=== PATIENT | male | born 1930 | race Caucasian/White ===

== ENCOUNTER 2019-01-21 13:40 | Inpatient (IN) ==
[2019-01-21] MEDS ORDERED: 0.9 % SODIUM CHLORIDE 1,000 ML IV ONE ×2 (13:46→14:53)
--- NOTE | 2019-01-21 13:57 | Emergency Department Note ---
Weakness HPI - General Chief complaint: Weakness Stated complaint: weakness Time Seen by Provider: 01/21/19 13:51 Source: patient, EMS Mode of arrival: EMS Limitations: no limitations - History of Present Illness HPI Narrative: Patient was seen in urgent care 4 days ago and diagnosed with influenza a was given Tamiflu. He was advised to return to the ED if he had increase symptoms patient states his been having increased weakness since then. There is been no nausea vomiting but patient appears to be dehydrated with his tongue being extremely dry. Patient does have a history of A. fib heart rate is in the 140s when he arrives but after given fluids is coming down. He denies any chest pain there is no shortness of breath.Is running a low-grade temperature of 99.6 the pulse rate is 146 respiratory rate 22 blood pressure 117/73 pulse ox is 91% on room air. Denies nausea vomiting no abdominal pain. Denies urgency frequency or dysuria - Related Data Home Medications Medication Instructions Recorded Confirmed Centrum Complete Multivit Tab 1 tab PO QDAY 12/26/15 01/21/19 Previous Rx's Medication Instructions Recorded oseltamivir 75 mg capsule 75 mg PO BID 5 Days #10 cap 01/18/19 apixaban 5 mg tablet 5 mg PO BID #1 tab 01/19/19 benazepril 20 mg tablet 20 mg PO QDAY #1 tab 01/19/19 bisoprolol fumarate 5 mg tablet 5 mg PO QDAY #1 tab 01/19/19 carbidopa 25 mg-levodopa 100 mg 1 tab PO TID #1 tab 01/19/19 tablet metformin 500 mg tablet 500 mg PO QDAY #1 tab 01/19/19 pioglitazone 45 mg tablet 45 mg PO QDAY #1 tab 01/19/19 rasagiline 1 mg tablet 1 mg PO QDAY #1 tab 01/19/19 Allergies Allergy/AdvReac Type Severity Reaction Status Date / Time No Known Drug Allergies Allergy Verified 01/21/19 13:44 Review of Systems Limitations: ROS unobtainable due to patients medical condition Constitutional: Reports: fever, chills Eyes: Denies: eye pain ENT ED: Reports: throat pain. Denies: ear pain, dental pain Cardiovascular: Denies: chest pain, palpitations, dyspnea on exertion Respiratory: Denies: as per HPI, shortness of breath, cough Gastrointestinal: Reports: abdominal pain. Denies: nausea, vomiting Genitourinary: Denies: dysuria, frequency, urgency Musculoskeletal: Denies: back pain, joint swelling Integumentary: Reports: pruritus. Denies: rash, lesions Neurological: Reports: as per HPI, weakness. Denies: headache, numbness, paresthesias, confusion Endocrine: Reports: fatigue Hematological/Lymphatic: Denies: easy bleeding Allergic/Immunologic: Denies: facial swelling Past Medical History - Social History smoking status: Never smoker Physical Exam Limitations: no limitations General appearance: alert Eye: Present: normal appearance, PERRL ENT: normal exam, normal oropharynx, mucous membranes dry, TM's normal bilaterally Neck: Present: normal inspection, full ROM, trachea midline. Absent: tenderness, meningismus Chest: Present: normal inspection, symmetric chest wall rise. Absent: tenderness Respiratory: Present: normal lung sounds bilaterally. Absent: respiratory d istress, rales/crackles, wheezes Cardiovascular: Present: regular rate, normal rhythm, normal heart sounds. Absent: bradycardia, tachycardia, irregular rhythm Abdominal: Present: soft, normal bowel sounds. Absent: distention, tenderness, guarding, rebound, rigidity Extremities: Present: normal inspection, full ROM. Absent: tenderness Back: Present: normal inspection, full ROM. Absent: tenderness Neurological: Present: alert, oriented X3, CN II-XII intact, reflexes normal. Absent: motor sensory deficit Psychiatric: Present: normal affect Skin: Present: warm, cool Course Vital Signs Temperature 99.6 F H 01/21/19 13:41 Pulse Rate 146 H 01/21/19 13:41 Respiratory Rate 22 01/21/19 13:41 Blood Pressure 117/73 01/21/19 13:41 Pulse Oximetry (%) 91 01/21/19 13:41 Temperature 98.2 F 01/22/19 04:01 Pulse Rate 101 H 01/22/19 07:23 Respiratory Rate 23 H 01/22/19 07:23 Blood Pressure 99/62 01/22/19 06:01 Pulse Oximetry (%) 94 01/22/19 06:07 Weakness - [facility] Narrative Medical decision making narrative: Patient has influenza on chest x-ray reveals bilateral infiltrates. Cultures have been drawn awaiting laboratory test results. Patient started on Rocephin and Zithromax. EKG shows A. fib with RVR this was sent over to the cherry cutter at [facility] to review, Dr. Lopez felt that this was just simply atrial fibrillation with RVR and treated with DILTIAZEM. Given IV fluids as he is day dehydrated - Lab Data Result diagrams: 01/22/19 03:56 01/22/19 03:56 Lab Results 01/21/19 01/21/19 01/21/19 Range/Units 14:05 14:05 14:05 WBC 16.9 H (4.5-11.0) K/mcL RBC 4.50 (4.50-5.90) M/mcL Hgb 14.4 (13.5-16.5) g/dL Hct 43.8 (41.0-55.0) % MCV 97.3 (80.0-100.0) fL MCH 31.9 (26.0-34.0) pg MCHC 32.8 (31.0-36.0) g/dL RDW 13.7 (11.5-14.5) % Plt Count 125 L (140-440) K/mcL MPV 8.9 (7.4-10.4) fL Gran % 90.7 H (38.0-78.0) % Lymph % (Auto) 6.2 L (15.5-49.0) % Boyle % (Auto) 3.0 (1.0-12.0) % Eos % (Auto) 0 (0.0-7.0) % Baso % (Auto) 0.1 (0.0-2.0) % Gran # 15.3 H (1.8-8.0) K/mcL Lymph # (Auto) 1.0 L (1.5-4.8) K/mcL Boyle # (Auto) 0.5 (0.1-0.9) K/mcL Eos # (Auto) 0 (0.0-0.7) K/mcL Baso # (Auto) 0 (0.0-0.3) K/mcL VBG Lactic Acid 1.7 (0.5-2.0) mmol/L Sodium 134 (133-145) mmol/L Potassium 4.0 (3.3-5.1) mmol/L Chloride 94 L (96-108) mmol/L Carbon Dioxide 29 (22-30) mmol/L Anion Gap 11.0 (8-16) BUN 16 (8-23) mg/dl Creatinine 0.8 (0.7-1.2) mg/dl GFR Calculation 80 Glucose 132 H (70-105) mg/dL Calcium 8.6 (8.6-10.4) mg/dl Magnesium (1.6-2.5) mg/dL Total Bilirubin 1.7 H (0.0-1.0) mg/dL AST 35 (0-37) U/l ALT 20 (0-40) U/l Alkaline Phosphatase 59 (39-117) U/L Total Creatine Kinase 104 (24-195) IU/L CK-MB (CK-2) 1.7 (0-4.9) ng/ml Myoglobin 97 H (28-72) ng/ml Troponin T (0-0.03) ng/ml NT-Pro-B Natriuret Pep 2888.0 H (0-450) pg/ml Total Protein 6.8 (5.9-8.4) gm/dL Albumin 3.1 L (3.2-5.2) gm/dL Globulin 3.7 (2.2-3.7) gm/dL Albumin/Globulin Ratio 0.8 L (1.0-2.3) Procalcitonin (<0.10) ng/mL 01/21/19 01/21/19 01/21/19 Range/Units 14:05 14:05 14:05 WBC (4.5-11.0) K/mcL RBC (4.50-5.90) M/mcL Hgb (13.5-16.5) g/dL Hct (41.0-55.0) % MCV (80.0-100.0) fL MCH (26.0-34.0) pg MCHC (31.0-36.0) g/dL RDW (11.5-14.5) % Plt Count (140-440) K/mcL MPV (7.4-10.4) fL Gran % (38.0-78.0) % Lymph % (Auto) (15.5-49.0) % Boyle % (Auto) (1.0-12.0) % Eos % (Auto) (0.0-7.0) % Baso % (Auto) (0.0-2.0) % Gran # (1.8-8.0) K/mcL Lymph # (Auto) (1.5-4.8) K/mcL Boyle # (Auto) (0.1-0.9) K/mcL Eos # (Auto) (0.0-0.7) K/mcL Baso # (Auto) (0.0-0.3) K/mcL VBG Lactic Acid (0.5-2.0) mmol/L Sodium (133-145) mmol/L Potassium (3.3-5.1) mmol/L Chloride (96-108) mmol/L Carbon Dioxide (22-30) mmol/L Anion Gap (8-16) BUN (8-23) mg/dl Creatinine (0.7-1.2) mg/dl GFR Calculation Glucose (70-105) mg/dL Calcium (8.6-10.4) mg/dl Magnesium 1.8 (1.6-2.5) mg/dL Total Bilirubin (0.0-1.0) mg/dL AST (0-37) U/l ALT (0-40) U/l Alkaline Phosphatase (39-117) U/L Total Creatine Kinase (24-195) IU/L CK-MB (CK-2) (0-4.9) ng/ml Myoglobin (28-72) ng/ml Troponin T < 0.01 (0-0.03) ng/ml NT-Pro-B Natriuret Pep (0-450) pg/ml Total Protein (5.9-8.4) gm/dL Albumin (3.2-5.2) gm/dL Globulin (2.2-3.7) gm/dL Albumin/Globulin Ratio (1.0-2.3) Procalcitonin 2.55 (<0.10) ng/mL Disposition Pt seen by PROFESSOR OF PSYCHOLOGY/PA only: No Clinical Impression: Pneumonia Disposition: Xfer As Inpt ([facility])
[2019-01-21] MEDS ORDERED: ASPIRIN 81 MG TAB.CHEW CHEWED ONE (14:08)
--- NOTE | 2019-01-21 14:11 | XRay Report ---
CLINICAL INFORMATION: weakness COMPARISON: None. FINDINGS: Moderate cardiomegaly is noted. Mediastinum and pulmonary vessels are unremarkable. Small infiltrate right midlung and moderate infiltrate in the left base appreciated. Small bilateral pleural effusions are noted. IMPRESSION: Moderate infiltrate left base and smaller infiltrate right midlung. Moderate cardiomegaly Interpreted and Authenticated by: Tigre Hill 01/21/19
[2019-01-21] MEDS ORDERED: cefTRIAXone 1 GM VIAL IV ONE (14:13)
[2019-01-21] MEDS ORDERED: AZITHROMYCIN 500 MG in DEXTROSE 5% IN WATER 250 ML IV ONE (14:15)
[2019-01-21] MEDS ORDERED: DILTIAZEM 25 MG/5 ML VIAL IV ONE (14:30)
[2019-01-21] MEDS ORDERED: DILTIAZEM 125 MG in DEXTROSE 5% IN WATER 100 ML IV SCH (14:30)
[2019-01-21 14:55] LABS: Basophils # (Auto) 0 K/mcL (0.0-0.3); Basophils % (Auto) 0.1 % (0.0-2.0); Eosinophils # (Auto) 0 K/mcL (0.0-0.7); Eosinophils % (Auto) 0 % (0.0-7.0); Granulocytes % (Auto) 90.7 % (38.0-78.0); Lymphocytes % (Auto) 6.2 % (15.5-49.0); Mean Cell Volume 97.3 fL (80.0-100.0); Mean Corpuscular HGB Conc 32.8 g/dL (31.0-36.0); Monocytes # (Auto) 0.5 K/mcL (0.1-0.9); Platelet Count 125 K/mcL (140-440); Red Cell Distribution Width 13.7 % (11.5-14.5)
[2019-01-21 15:19] LABS: ALT/SGPT 20 U/l (0-40); Albumin 3.1 gm/dL (3.2-5.2); Albumin/Globulin Ratio 0.8 (1.0-2.3); Alkaline Phosphatase 59 U/L (39-117); Blood Urea Nitrogen 16 mg/dl (8-23); Creatine Kinase 104 IU/L (24-195); Creatine Kinase MB 1.7 ng/ml (0-4.9); Myoglobin 97 ng/ml (28-72)
[2019-01-21] MEDS ORDERED: METOPROLOL TARTRATE 5 MG/5 ML VIAL IV ONE (15:47)
--- NOTE | 2019-01-21 16:03 | Internal Med History&Physical ---
Medical - H&P: HPI Patient information: Note initiated : 01/21/19 at 3:59 pm Service Date, if different from initiated Date: [] Patient: Chad Wilkes 88 y/o M admitted on for weakness. Chief Complaint: [] History of present illness: Mr. Wilkes is a 88 year old M Who was diagnosed with influenza A Thursday along with his daughter who he lives with. Started on Tamiflu. However he is been quite debilitated since coming down with the flu. Very weak and lethargic poor appetite. Because of his lack of improvement his family members brought him in. He had continued cough which is family says he just swallows so is unable to identify what the sputum looks like. He admits to cough denies shortness of breath feels weak and lethargic, denies fevers. In the ED is found to have a infiltrates in the right kidney left long also small in the right mid. Also has a history of atrial ablation was found to be in A. fib RVR and is required diltiazem drip. EKG strip was discussed with cardiology as well no acute concerns. He is tachypneic. Oxygenation was adequate. Family unable to care form as patient was so weak he was unable to get out of bed. He also has had some diarrhea this week, his daughter who has the flu also had some diarrhea this week. Lactic acid was okay, leukocytosis of 17 Review of Systems: Positives as above. Denies headache/fever/chills/nausea/vomiting/chest or abdominal pain/dyspnea. Remaining 10 point review of systems reviewed negative Medical - H&P: PMH Medical history: Medical History (Last Reviewed 01/18/19 @ 18:44 by Jessica Herrera PA-C) Diabetes A fibrillation Hypertension Parkinson's Surgical history: Left total knee arthroplasty and cataract surgery Family history: mother asthma father history unknown Social history: No current tobacco or smoking no smoking history Uses a cane to ambulate Lives with his daughter Medical - H&P: Meds Home Medications Medication Instructions Recorded Confirmed Type Centrum Complete Multivit Tab 1 tab PO QDAY 12/26/15 01/21/19 History oseltamivir 75 mg capsule 75 mg PO BID 5 Days #10 cap 01/18/19 01/21/19 Rx apixaban 5 mg tablet 5 mg PO BID #1 tab 01/19/19 01/21/19 Rx benazepril 20 mg tablet 20 mg PO QDAY #1 tab 01/19/19 01/21/19 Rx bisoprolol fumarate 5 mg tablet 5 mg PO QDAY #1 tab 01/19/19 01/21/19 Rx carbidopa 25 mg-levodopa 100 mg 1 tab PO TID #1 tab 01/19/19 01/21/19 Rx tablet metformin 500 mg tablet 500 mg PO QDAY #1 tab 01/19/19 01/21/19 Rx pioglitazone 45 mg tablet 45 mg PO QDAY #1 tab 01/19/19 01/21/19 Rx rasagiline 1 mg tablet 1 mg PO QDAY #1 tab 01/19/19 01/21/19 Rx Allergies Allergy/AdvReac Type Severity Reaction Status Date / Time No Known Drug Allergies Allergy Verified 01/21/19 13:44 Medical - H&P: Exam - Constitutional Vitals: Temp Pulse Resp BP Pulse Ox 99.6 F H 119 H 30 H 94/78 95 01/21/19 13:41 01/21/19 15:46 01/21/19 15:46 01/21/19 15:46 01/21/19 15:46 Exam: General: Awake, appears quite fatigued, no acute Distress Eyes/N/T: EOMI, PEERL, DMM Head/Neck: neck supple, normocephalic atraumatic CV: Tacky and irregular , normal s1/s2 Pulm: Bilateral wheezing mild, mild left rhonchi Abd: soft, nontender, +BS x4 Ext: no clubbing/cyanosis/edema Neuro: Alert, no focal deficits, moves all extremities, CN 2-12 grossly intact, symmetrical strength b/l upper/lower, sensations intact b/l upper/lower Skin: warm/dry Medical - H&P: Reslt - Labs CBC & Chem 7: 01/21/19 14:05 01/21/19 14:05 Labs: Short CBC 01/21/19 Range/Units 14:05 WBC 16.9 H (4.5-11.0) K/mcL Hgb 14.4 (13.5-16.5) g/dL Hct 43.8 (41.0-55.0) % Plt Count 125 L (140-440) K/mcL BMP 03/15/19 14:05 Sodium 134 Potassium 4.0 Chloride 94 L Carbon Dioxide 29 BUN 16 Creatinine 0.8 Glucose 132 H Calcium 8.6 Cardiac Enzymes 01/21/19 01/21/19 Range/Units 14:05 14:05 Total Creatine Kinase 104 (24-195) IU/L CK-MB (CK-2) 1.7 (0-4.9) ng/ml Troponin T < 0.01 (0-0.03) ng/ml Liver Function 01/21/19 Range/Units 14:05 Total Bilirubin 1.7 H (0.0-1.0) mg/dL AST 35 (0-37) U/l ALT 20 (0-40) U/l Alkaline Phosphatase 59 (39-117) U/L Albumin 3.1 L (3.2-5.2) gm/dL - Impressions Chest x-ray with infiltrate left side as well as small in the right mid Medical - H&P: A/P - Narrative A/P Narrative: A: *Influenza A PNA, likely primary: * *Afib RVR: On beta-janay and Eliquis at home follows with Dr. De Los Santos *HTN: *Parkinson's: *DM: * * P: -Abx coverage for Stap particularly -check PCT -finish tamiflu -IVF's -wean off dilt gtt to home BB -echo records from [facility] - -SSI -PT/OT -ppx: home Eliquis
[2019-01-21] MEDS ORDERED: VANCOMYCIN PER PHARMACY IV ONE (17:25)
[2019-01-21] MEDS ORDERED: DEXTROSE 31 GM ORAL.SUSP PO PRN (17:25)
[2019-01-21] MEDS ORDERED: POLYETHYLENE GLYCOL 3350 17 GM PACKET PO PRN (17:25)
[2019-01-21] MEDS ORDERED: ONDANSETRON 4 MG/2 ML VIAL IV PRN (17:25)
[2019-01-21] MEDS ORDERED: POTASSIUM CHLORIDE 40 MEQ in DEXTROSE 5% IN WATER 500 ML IV PRN (17:25)
[2019-01-21] MEDS ORDERED: cefTRIAXone 1 GM in DEXTROSE 5% IN WATER 50 ML IV SCH (17:25)
[2019-01-21] MEDS ORDERED: PROMETHAZINE 25 MG TABLET PO PRN (17:25)
[2019-01-21] MEDS ORDERED: IPRATROPIUM/ALBUTEROL 3 ML AMPUL.NEB NEB PRN (17:25)
[2019-01-21] MEDS ORDERED: MAGNESIUM SULFATE 2 GM/50 ML BAG IV PRN (17:25)
[2019-01-21] MEDS ORDERED: DEXTROSE 50% 50 ML VIAL IV PRN (17:25)
[2019-01-21] MEDS ORDERED: ACETAMINOPHEN 325 MG TABLET PO PRN (17:25)
[2019-01-21] MEDS ORDERED: POTASSIUM CHLORIDE 20 MEQ TABLET PO PRN ×2 (17:25)
[2019-01-21] MEDS ORDERED: MAGNESIUM SULFATE 8.12 MEQ in DEXTROSE 5% IN WATER 50 ML IV ONE (18:06)
[2019-01-21] MEDS: INSULIN LISPRO 1 UNIT/0.01 ML UNIT SQ SCH ×2 (18:28→21:51)
[2019-01-21] MEDS ORDERED: VANCOMYCIN 1,500 MG in 0.9 % SODIUM CHLORIDE 500 ML IV SCH (19:00)
[2019-01-21] MEDS: IPRATROPIUM/ALBUTEROL 3 ML AMPUL.NEB NEB SCH (19:07)
[2019-01-21] MEDS ORDERED: VANCOMYCIN 1,500 MG in 0.9 % SODIUM CHLORIDE 500 ML IV ONE (19:15)
[2019-01-21 19:16] LABS: Appearance,Urine HAZY; Bacteria,Urine 0 /hpf (0); Bilirubin,Urine NEG (NEG); Color,Urine AMBER; Glucose,Urine (UA) NEGATIVE (NEG); Leukocyte Esterase,Urine NEG /uL (NEG); Mucus,Urine MANY /hpf (0); Protein,Urine 100 mg/dL (NEG); Specific Gravity,Urine 1.027 (1.000-1.035); Urine Blood 0.03 mg/dL (<0.03); Urine Hyaline Cast 1 /lpf (0-2); Urine RBC 1 /hpf (0-1); Urine Squamous Epithelial Cell < 1 /hpf (0-4); Urine WBC 4 /hpf (0-4)
[2019-01-21] MEDS: BISOPROLOL 5 MG TABLET PO SCH (19:17)
[2019-01-21] MEDS ORDERED: MAGNESIUM SULFATE 8.12 MEQ/2 ML VIAL ONE (19:23)
[2019-01-21] MEDS: APIXABAN 5 MG TABLET PO SCH (21:50)
[2019-01-21] MEDS: OSELTAMIVIR PHOSPHATE 75 MG CAPSULE PO SCH (21:50)
[2019-01-21] MEDS: CARBIDOPA/LEVODOPA 25/100 TABLET PO SCH (21:50)
[2019-01-21] MEDS: FAMOTIDINE 20 MG TABLET PO SCH (21:51)
[2019-01-21] MEDS: OLANZapine 10 MG VIAL IM PRN (21:52)
[2019-01-21] MEDS: 0.9 % SODIUM CHLORIDE 10 ML SYRINGE IV SCH (21:53)
[2019-01-21] MEDS ORDERED: HALOPERIDOL LACTATE 5 MG/ML VIAL IV ONE (22:26)
[2019-01-21] MEDS ORDERED: HALOPERIDOL LACTATE 5 MG/ML VIAL ONE (22:29)
[2019-01-22] MEDS: IPRATROPIUM/ALBUTEROL 3 ML AMPUL.NEB NEB SCH ×4 (02:28→18:36)
[2019-01-22] MEDS: DILTIAZEM 125 MG in DEXTROSE 5% IN WATER 100 ML IV SCH ×2 (04:23→15:42)
[2019-01-22] MEDS: 0.9 % SODIUM CHLORIDE 10 ML SYRINGE IV SCH ×4 (05:55→22:20)
[2019-01-22 05:58] LABS: Basophils # (Auto) 0 K/mcL (0.0-0.3); Basophils % (Auto) 0.1 % (0.0-2.0); Eosinophils # (Auto) 0 K/mcL (0.0-0.7); Eosinophils % (Auto) 0 % (0.0-7.0); Granulocytes % (Auto) 85.3 % (38.0-78.0); Lymphocytes # (Auto) 1.5 K/mcL (1.5-4.8); Lymphocytes % (Auto) 11.1 % (15.5-49.0); Mean Cell Volume 97.9 fL (80.0-100.0); Mean Corpuscular HGB Conc 32.9 g/dL (31.0-36.0); Monocytes # (Auto) 0.5 K/mcL (0.1-0.9); Monocytes % (Auto) 3.5 % (1.0-12.0); Platelet Count 120 K/mcL (140-440); RBC 3.89 M/mcL (4.50-5.90); Red Cell Distribution Width 13.6 % (11.5-14.5)
[2019-01-22 06:51] LABS: ALT/SGPT 6 U/l (0-40); Albumin 2.8 gm/dL (3.2-5.2); Albumin/Globulin Ratio 0.8 (1.0-2.3); Alkaline Phosphatase 64 U/L (39-117); Bilirubin,Direct 0.4 mg/dL (0.0-0.3); Blood Urea Nitrogen 22 mg/dl (8-23); Gamma Glutamyl Transpeptidase 27 U/L (8-61); Uric Acid 3.1 mg/dL (2.5-8.0)
--- NOTE | 2019-01-22 08:17 | Internal Med Progress Note ---
Medical - PN: Subj Patient information: Note initiated : 01/22/19 at 8:12 am Service Date, if different from initiated Date: [] Patient: Chad Wilkes 88 y/o M admitted on 01/21/19 for weakness. Chief Complaint: [] Interval history: Mr. Wilkes is a 88 year old M Who was diagnosed with influenza A Thursday along with his daughter who he lives with. Started on Tamiflu. However he is been quite debilitated since coming d own with the flu. Very weak and lethargic poor appetite. Because of his lack of improvement his family members brought him in. He had continued cough which is family says he just swallows so is unable to identify what the sputum looks like. He admits to cough denies shortness of breath feels weak and lethargic, denies fevers. In the ED is found to have a infiltrates in the right kidney left long also small in the right mid. Also has a history of atrial ablation was found to be in A. fib RVR and is required diltiazem drip. EKG strip was discussed with cardiology as well no acute concerns. He is tachypneic. Oxygenation was adequate. Family unable to care form as patient was so weak he was unable to get out of bed. He also has had some diarrhea this week, his daughter who has the flu also had some diarrhea this week. Lactic acid was okay, leukocytosis of 17 01/22 Slept okay. One point had a mild desaturation in the high 80s while sleeping. While awake off oxygen except for when he gets up to move, then he desaturates. Has a cough. Off diltiazem drip at this point. Was agitated last night started pulling at lines, suspect some underlying dementia. Quite unsteady on his feet per physical therapy. Review of Systems: denies headache/fever/chills/nausea/vomiting/chest or abdominal pain/dyspnea/diarrhea. Otherwise see above. - Constitutional Vitals: Vital Signs Temp Pulse Resp BP Pulse Ox 98.2 F 101 H 23 H 99/62 94 01/22/19 04:01 01/22/19 07:23 01/22/19 07:23 01/22/19 06:01 01/22/19 06:07 Period Temp Pulse Resp BP Sys/Guzman Pulse Ox Last 24 Hr 97.9 F-99.6 F 25-146 15-36 85-130/37-89 88-97 Intake and Output 01/21/19 01/22/19 01/22/19 21:59 05:59 13:59 Intake Total 2264 259 Output Total 200 475 Balance 2063 Weight 95.209 kg Intake & Output: Intake & Output 01/21/19 01/22/19 01/22/19 21:59 05:59 13:59 Intake Total 2264 259 Output Total 200 475 Balance 2063 Weight 95.209 kg Intake: IV 2264 39 Sodium Chloride 0.9% 1,000 ml @ 2000 Wide Open IV BOLUS ONE Rx#: [id number] Zithromax 500 mg In Dextrose 5% 250 in Water 250 ml @ 250 mls/hr IV ONCE ONE Rx#:[id number] Cardizem 125 mg In Dextrose 5% 14 in Water 100 ml @ 5 MG/HR 5 mls /hr IV Q12H GAVIN Rx#:[id number] Oral 220 Output: Urine Catheter Amount 475 Straight 475 Void Amount 200 Other: Meal Dinner Percent of Meal Consumed 75% Feeding Ability Assist with Tray Set Up Urine Appearance Straight Sediment Urine Color Straight Dark Jessica Blood Tinged Urine Odor Straight Strong Exam: General: Awake, more alert today, no acute Distress Eyes/N/T: EOMI, Head/Neck: neck supple, CV: Mild tacky and irregular, Pulm: Bilateral rhonchi, no wheezing today. Abd: soft, nontender, +BS x4 Ext: no clubbing/cyanosis/edema Neuro: Alert, no focal deficits, moves all extremities, Skin: warm/dry Medical - PN: Obj Da - Labs CBC & Chem 7: 01/22/19 03:56 01/22/19 03:56 Labs: Abnormal Lab Results 01/22/19 01/22/19 01/21/19 03:56 03:56 18:10 WBC 13.7 H RBC 3.89 L Hgb 12.5 L Hct 38.0 L Plt Count 120 L Gran % 85.3 H Lymph % (Auto) 11.1 L Gran # 11.7 H Lymph # (Auto) Chloride Glucose Calcium 8.5 L Phosphorus 1.5 L Total Bilirubin 1.3 H Direct Bilirubin 0.4 H Myoglobin NT-Pro-B Natriuret Pep Albumin 2.8 L Albumin/Globulin Ratio 0.8 L Urine Protein 100 A Urine Occult Blood 0.03 A Urine Urobilinogen 4.0 A Urine Mucus Many A 01/21/19 01/21/19 14:05 14:05 WBC 16.9 H RBC Hgb Hct Plt Count 125 L Gran % 90.7 H Lymph % (Auto) 6.2 L Gran # 15.3 H Lymph # (Auto) 1.0 L Chloride 94 L Glucose 132 H Calcium Phosphorus Total Bilirubin 1.7 H Direct Bilirubin Myoglobin 97 H NT-Pro-B Natriuret Pep 2888.0 H Albumin 3.1 L Albumin/Globulin Ratio 0.8 L Urine Protein Urine Occult Blood Urine Urobilinogen Urine Mucus Meds: Medications Acetaminophen (Tylenol) 650 mg PO Q6HP PRN PRN Reason: PAIN/FEVER > 101 Albuterol/Ipratropium (Duoneb) 3 ml NEB Q6HRT [facility] Last Admin: 01/22/19 07:11 Dose: 3 ml Documented by: Albuterol/Ipratropium (Duoneb) 3 ml NEB Q4HP PRN PRN Reason: Shortness Of Breath Apixaban (Eliquis) 5 mg PO BID [facility] Last Admin: 01/21/19 21:50 Dose: 5 mg Documented by: Bisoprolol Fumarate (Zebeta) 5 mg PO QDAY [facility] Last Admin: 01/21/19 19:17 Dose: 5 mg Documented by: Carbidopa/Levodopa (Sinemet 25/100) 1 tab PO TID [facility] Last Admin: 01/21/19 21:50 Dose: 1 tab Documented by: Ceftriaxone Sodium (Rocephin) 1 gm IV DAILY [facility] Dextrose (Dextrose 50%) 0 ml IV UD PRN PRN Reason: Hypoglycemia Diagnostic Test (Pha) (Accu-Chek) 1 each FS ACHS [facility] Last Admin: 01/21/19 21:49 Dose: 1 each Documented by: Famotidine (Pepcid) 20 mg PO BID [facility] Last Admin: 01/21/19 21:51 Dose: 20 mg Documented by: Glucose (Insta-Glucose) 15 gm PO PRN PRN PRN Reason: Hypoglycemia Diltiazem HCl 125 mg/ Dextrose 125 mls @ 5 mls/hr IV Q12H [facility]; Protocol Last Admin: 01/22/19 04:23 Dose: Not Given Documented by: Azithromycin 500 mg/ Dextrose 250 mls @ 250 mls/hr IV DAILY [facility] Stop: 01/23/19 09:59 Potassium Chloride 40 meq/ (Dextrose) 520 mls @ 130 mls/hr IV ONCE PRN PRN Reason: Potassium < 3 Magnesium Sulfate (Magnesium Sulfate) 2 gm in 50 mls @ 50 mls/hr IV ONCE PRN PRN Reason: Magnesium </= 1.6 Insulin Human Lispro (Humalog) 0 unit SQ ACHS [facility]; Protocol Last Admin: 01/21/19 21:51 Dose: 6 unit Documented by: Olanzapine (Zyprexa) 5 mg IM BIDP PRN PRN Reason: Agitation Last Admin: 01/21/19 21:52 Dose: 5 mg Documented by: Ondansetron HCl (Zofran) 4 mg IV Q4HP PRN PRN Reason: Nausea And Vomiting Oseltamivir Phosphate (Tamiflu) 75 mg PO BID [facility] Last Admin: 01/21/19 21:50 Dose: 75 mg Documented by: Rasagiline Mesylate (1 Mg Tablet) 1 dose PO DAILY [facility] Polyethylene Glycol (Miralax) 17 gm PO DAILYP PRN PRN Reason: Constipation Potassium Chloride (Kdur) 40 meq PO ONCE PRN PRN Reason: Potssium is 3-3.5 Potassium Chloride (Kdur) 40 meq PO ONCE PRN PRN Reason: Potassium < 3 Promethazine HCl (Phenergan) 0 mg PO Q6HP PRN PRN Reason: Nausea And Vomiting Sodium Chloride (Saline Flush) 10 ml IV Q8 [facility] Last Admin: 01/22/19 05:55 Dose: 10 ml Documented by: Medical - PN: A/P - Time Spent With Patient Total time spent is greater than 50% in coordination of care (as documented) at patient's floor/unit and/or counseling patient: - Narrative A/P Narrative: A: *Secondary bacterial pneumonia: 2/2 influenza A -leukocytosis improving *Influenza A: *Afib RVR: On beta-janay and Eliquis at home follows with Dr. De Los Santos *HTN: on bisoprolol and benazepril *Parkinson's: *likely underlying dementia: *DM: * P: -Abx coverage for Staph particularly -finish tamiflu -IS/Acapella -off dilt gtt, cont home BB and prn IV lopressor -hold ACEI for low BP -echo records - -SSI -PT/OT -ppx: home Eliquis Medical - PN: Qual - VTE Deep Vein Thrombosis/Pulmonary Embolism Present on Admission: No
[2019-01-22] MEDS: INSULIN LISPRO 1 UNIT/0.01 ML UNIT SQ SCH ×4 (09:17→22:19)
[2019-01-22] MEDS: NEUTRA PHOS 1 PACKET PO SCH ×3 (09:25→22:19)
[2019-01-22] MEDS: OSELTAMIVIR PHOSPHATE 75 MG CAPSULE PO SCH ×2 (09:26→22:17)
[2019-01-22] MEDS: FAMOTIDINE 20 MG TABLET PO SCH ×2 (09:26→22:18)
[2019-01-22] MEDS: cefTRIAXone 1 GM VIAL IV SCH (09:26)
[2019-01-22] MEDS: BISOPROLOL 5 MG TABLET PO SCH (09:26)
[2019-01-22] MEDS: APIXABAN 5 MG TABLET PO SCH ×2 (09:26→22:17)
[2019-01-22] MEDS: CARBIDOPA/LEVODOPA 25/100 TABLET PO SCH ×3 (09:26→22:17)
[2019-01-22] MEDS: AZITHROMYCIN 500 MG in DEXTROSE 5% IN WATER 250 ML IV SCH (11:05)
--- NOTE | 2019-01-22 11:22 | XRay Report ---
CLINICAL INFORMATION: PNA COMPARISON: 01/21/2019 FINDINGS: Moderate cardiomegaly is unchanged. Mediastinum and pulmonary vessels are normal. The left lung infiltrate has worsened considerably since yesterday: There is now a large region of dense consolidation in the left lower lung with a new small infiltrate in the left midlung. The right midlung infiltrate is better aerated - now nearly resolved IMPRESSION: Large infiltrate in the left lower lung with new small infiltrate left midlung - worsening Near complete resolution small right midlung infiltrate Interpreted and Authenticated by: Tigre Hill 01/22/19
[2019-01-22] MEDS: OLANZapine 10 MG VIAL IM PRN ×2 (17:40→22:17)
[2019-01-22] MEDS: METOPROLOL TARTRATE 5 MG/5 ML VIAL IV PRN ×2 (18:00→22:18)
[2019-01-22] MEDS ORDERED: HALOPERIDOL LACTATE 5 MG/ML VIAL IV ONE (20:25)
[2019-01-22] MEDS ORDERED: QUEtiapine 25 MG TABLET PO ONE (20:25)
[2019-01-22] MEDS ORDERED: HALOPERIDOL LACTATE 5 MG/ML VIAL ONE (20:28)
[2019-01-23] MEDS: DILTIAZEM 125 MG in DEXTROSE 5% IN WATER 100 ML IV SCH (00:56)
[2019-01-23] MEDS: IPRATROPIUM/ALBUTEROL 3 ML AMPUL.NEB NEB SCH ×4 (02:12→18:56)
[2019-01-23] MEDS: METOPROLOL TARTRATE 5 MG/5 ML VIAL IV PRN ×3 (02:12→07:20)
[2019-01-23] MEDS: 0.9 % SODIUM CHLORIDE 10 ML SYRINGE IV SCH ×5 (05:13→21:34)
[2019-01-23 06:28] LABS: Basophils # (Auto) 0 K/mcL (0.0-0.3); Basophils % (Auto) 0.2 % (0.0-2.0); Eosinophils # (Auto) 0 K/mcL (0.0-0.7); Eosinophils % (Auto) 0 % (0.0-7.0); Granulocytes % (Auto) 76.6 % (38.0-78.0); Lymphocytes # (Auto) 1.5 K/mcL (1.5-4.8); Lymphocytes % (Auto) 17.5 % (15.5-49.0); Mean Cell Volume 97.1 fL (80.0-100.0); Mean Corpuscular HGB Conc 32.8 g/dL (31.0-36.0); Monocytes # (Auto) 0.5 K/mcL (0.1-0.9); Monocytes % (Auto) 5.7 % (1.0-12.0); Platelet Count 138 K/mcL (140-440); RBC 3.95 M/mcL (4.50-5.90); Red Cell Distribution Width 13.6 % (11.5-14.5)
[2019-01-23] MEDS: INSULIN LISPRO 1 UNIT/0.01 ML UNIT SQ SCH ×4 (07:33→21:27)
[2019-01-23 07:40] LABS: ALT/SGPT 5 U/l (0-40); Albumin/Globulin Ratio 0.9 (1.0-2.3); Alkaline Phosphatase 56 U/L (39-117); Bilirubin,Direct 0.4 mg/dL (0.0-0.3); Blood Urea Nitrogen 16 mg/dl (8-23); Gamma Glutamyl Transpeptidase 27 U/L (8-61); Uric Acid 3.6 mg/dL (2.5-8.0)
[2019-01-23] MEDS ORDERED: AMIODARONE 150 MG in DEXTROSE 5% IN WATER 50 ML IV ONE (08:09)
--- NOTE | 2019-01-23 08:13 | Internal Med Progress Note ---
Medical - PN: Subj Patient information: Note initiated : 01/23/19 at 8:06 am Service Date, if different from initiated Date: [] Patient: Chad Wilkes 88 y/o M admitted on 01/21/19 for weakness. Chief Complaint: [] Interval history: Mr. Wilkes is a 88 year old M Who was diagnosed with influenza A Thursday along with his daughter who he lives with. Started on Tamiflu. However he is been quite debilitated since coming d own with the flu. Very weak and lethargic poor appetite. Because of his lack of improvement his family members brought him in. He had continued cough which is family says he just swallows so is unable to identify what the sputum looks like. He admits to cough denies shortness of breath feels weak and lethargic, denies fevers. In the ED is found to have a infiltrates in the right kidney left long also small in the right mid. Also has a history of atrial ablation was found to be in A. fib RVR and is required diltiazem drip. EKG strip was discussed with cardiology as well no acute concerns. He is tachypneic. Oxygenation was adequate. Family unable to care form as patient was so weak he was unable to get out of bed. He also has had some diarrhea this week, his daughter who has the flu also had some diarrhea this week. Lactic acid was okay, leukocytosis of 17 01/22 Slept okay. One point had a mild desaturation in the high 80s while sleeping. While awake off oxygen except for when he gets up to move, then he desaturates. Has a cough. Off diltiazem drip at this point. Was agitated last night started pulling at lines, suspect some underlying dementia. Quite unsteady on his feet per physical therapy. 01/23 Agitated last night and required Haldol. Confused this morning, and incoherent. cough but nurses unable to get sputum sample. Review of Systems: Unable to obtain given confusion - Constitutional Vitals: Vital Signs Temp Pulse Resp BP Pulse Ox 98.4 F 115 H 25 H 116/85 96 01/23/19 07:30 01/23/19 07:19 01/23/19 07:33 01/23/19 07:33 01/23/19 07:33 Period Temp Pulse Resp BP Sys/Guzman Pulse Ox Last 24 Hr 97.0 F-98.9 F 63-133 14-36 84-141/53-97 89-99 Intake and Output 01/22/19 01/23/19 01/23/19 21:59 05:59 13:59 Intake Total 600 Output Total 1500 2 Balance -900 -2 Weight 94.801 kg Intake & Output: Intake & Output 01/22/19 01/23/19 01/23/19 21:59 05:59 13:59 Intake Total 600 Output Total 1500 2 Balance -900 -2 Weight 94.801 kg Intake: Oral 600 Output: Void Amount 150 # of times incontinent of urine 2 Urine/Stool Mix 1000 Stool 350 Other: Urine Color Dark Jessica Light Jessica Urine Odor Strong Stool Size Moderate Stool Color Brown Stool Consistency Liquid Exam: General: Awake, more alert today, no acute Distress Eyes/N/T: EOMI, Head/Neck: neck supple, CV: Mild tacky and irregular, Pulm: clearing up, no wheezing/rales. Abd: soft, nontender, +BS x4 Ext: no clubbing/cyanosis/edema Neuro: Alert, no focal deficits, moves all extremities, Skin: warm/dry Medical - PN: Obj Da - Labs CBC & Chem 7: 01/23/19 03:53 01/23/19 03:53 Labs: Abnormal Lab Results 01/23/19 01/23/19 01/22/19 03:53 03:53 03:56 WBC RBC 3.95 L Hgb 12.6 L Hct 38.4 L Plt Count 138 L Gran % Lymph % (Auto) Gran # Lymph # (Auto) Chloride Creatinine 0.6 L Glucose Calcium 8.5 L Phosphorus 1.8 L 1.5 L Total Bilirubin 1.3 H Direct Bilirubin 0.4 H 0.4 H Myoglobin NT-Pro-B Natriuret Pep Albumin 3.0 L 2.8 L Albumin/Globulin Ratio 0.9 L 0.8 L Urine Protein Urine Occult Blood Urine Urobilinogen Urine Mucus 01/22/19 01/21/19 01/21/19 03:56 18:10 14:05 WBC 13.7 H RBC 3.89 L Hgb 12.5 L Hct 38.0 L Plt Count 120 L Gran % 85.3 H Lymph % (Auto) 11.1 L Gran # 11.7 H Lymph # (Auto) Chloride 94 L Creatinine Glucose 132 H Calcium Phosphorus Total Bilirubin 1.7 H Direct Bilirubin Myoglobin 97 H NT-Pro-B Natriuret Pep 2888.0 H Albumin 3.1 L Albumin/Globulin Ratio 0.8 L Urine Protein 100 A Urine Occult Blood 0.03 A Urine Urobilinogen 4.0 A Urine Mucus Many A 01/21/19 14:05 WBC 16.9 H RBC Hgb Hct Plt Count 125 L Gran % 90.7 H Lymph % (Auto) 6.2 L Gran # 15.3 H Lymph # (Auto) 1.0 L Chloride Creatinine Glucose Calcium Phosphorus Total Bilirubin Direct Bilirubin Myoglobin NT-Pro-B Natriuret Pep Albumin Albumin/Globulin Ratio Urine Protein Urine Occult Blood Urine Urobilinogen Urine Mucus Meds: Medications Acetaminophen (Tylenol) 650 mg PO Q6HP PRN PRN Reason: PAIN/FEVER > 101 Albuterol/Ipratropium (Duoneb) 3 ml NEB Q6HRT [facility] Last Admin: 01/23/19 07:13 Dose: 3 ml Documented by: Albuterol/Ipratropium (Duoneb) 3 ml NEB Q4HP PRN PRN Reason: Shortness Of Breath Apixaban (Eliquis) 5 mg PO BID [facility] Last Admin: 01/22/19 22:17 Dose: 5 mg Documented by: Bisoprolol Fumarate (Zebeta) 5 mg PO QDAY [facility] Last Admin: 01/22/19 09:26 Dose: 5 mg Documented by: Carbidopa/Levodopa (Sinemet 25/100) 1 tab PO TID [facility] Last Admin: 01/22/19 22:17 Dose: 1 tab Documented by: Ceftriaxone Sodium (Rocephin) 1 gm IV DAILY [facility] Last Admin: 01/22/19 09:26 Dose: 1 gm Documented by: Dextrose (Dextrose 50%) 0 ml IV UD PRN PRN Reason: Hypoglycemia Diagnostic Test (Pha) (Accu-Chek) 1 each FS ACHS [facility] Last Admin: 01/23/19 07:33 Dose: 1 each Documented by: Famotidine (Pepcid) 20 mg PO BID [facility] Last Admin: 01/22/19 22:18 Dose: 20 mg Documented by: Glucose (Insta-Glucose) 15 gm PO PRN PRN PRN Reason: Hypoglycemia Diltiazem HCl 125 mg/ Dextrose 125 mls @ 5 mls/hr IV Q12H [facility]; Protocol Last Admin: 01/23/19 00:56 Dose: Not Given Documented by: Azithromycin 500 mg/ Dextrose 250 mls @ 250 mls/hr IV DAILY [facility] Stop: 01/23/19 09:59 Last Infusion: 01/22/19 12:05 Dose: Infused Documented by: Potassium Chloride 40 meq/ (Dextrose) 520 mls @ 130 mls/hr IV ONCE PRN PRN Reason: Potassium < 3 Magnesium Sulfate (Magnesium Sulfate) 2 gm in 50 mls @ 50 mls/hr IV ONCE PRN PRN Reason: Magnesium </= 1.6 Insulin Human Lispro (Humalog) 0 unit SQ ACHS [facility]; Protocol Last Admin: 01/23/19 07:33 Dose: Not Given Documented by: Metoprolol Tartrate (Lopressor) 5 mg IV Q2HP PRN PRN Reason: Tachyarrhythmias Last Admin: 01/23/19 07:20 Dose: 5 mg Documented by: Olanzapine (Zyprexa) 5 mg IM BIDP PRN PRN Reason: Agitation Last Admin: 01/22/19 22:17 Dose: 5 mg Documented by: Ondansetron HCl (Zofran) 4 mg IV Q4HP PRN PRN Reason: Nausea And Vomiting Oseltamivir Phosphate (Tamiflu) 75 mg PO BID [facility] Last Admin: 01/22/19 22:17 Dose: 75 mg Documented by: Rasagiline Mesylate (1 Mg Tablet) 1 dose PO DAILY [facility] Last Admin: 01/22/19 11:04 Dose: 1 dose Documented by: Polyethylene Glycol (Miralax) 17 gm PO DAILYP PRN PRN Reason: Constipation Potassium Chloride (Kdur) 40 meq PO ONCE PRN PRN Reason: Potssium is 3-3.5 Potassium Chloride (Kdur) 40 meq PO ONCE PRN PRN Reason: Potassium < 3 Promethazine HCl (Phenergan) 0 mg PO Q6HP PRN PRN Reason: Nausea And Vomiting Sodium Chloride (Saline Flush) 10 ml IV Q8 [facility] Last Admin: 01/23/19 07:20 Dose: 10 ml Documented by: Medical - PN: A/P - Time Spent With Patient Total time spent is greater than 50% in coordination of care (as documented) at patient's floor/unit and/or counseling patient: - Narrative A/P Narrative: A: *Secondary bacterial pneumonia: 2/2 influenza A -leukocytosis resolved *Influenza A: *Afib RVR: On BB and Eliquis at home follows with Dr. De Los Santos *HTN: on bisoprolol and benazepril *Parkinson's: *likely underlying dementia 2/2 above: manifesting in hospital setting *DM: * P: -Abx coverage for Staph particularly -finished tamiflu -IS/Acapella -cont home BB(increased) and prn IV lopressor -hold ACEI for low BP (BP better, but holding while titrating Bisoprolol) -seroquel bid -SSI -ST eval -PT/OT -ppx: home Eliquis Medical - PN: Qual - VTE Deep Vein Thrombosis/Pulmonary Embolism Present on Admission: No
[2019-01-23] MEDS: FAMOTIDINE 20 MG TABLET PO SCH ×2 (08:57→21:34)
[2019-01-23] MEDS: NEUTRA PHOS 1 PACKET PO SCH ×3 (08:57→21:34)
[2019-01-23] MEDS: QUEtiapine 25 MG TABLET PO SCH ×2 (08:57→21:33)
[2019-01-23] MEDS: BISOPROLOL 5 MG TABLET PO SCH (08:57)
[2019-01-23] MEDS: OSELTAMIVIR PHOSPHATE 75 MG CAPSULE PO SCH (08:58)
[2019-01-23] MEDS: cefTRIAXone 1 GM VIAL IV SCH (08:58)
[2019-01-23] MEDS: APIXABAN 5 MG TABLET PO SCH ×2 (08:58→21:33)
[2019-01-23] MEDS: CARBIDOPA/LEVODOPA 25/100 TABLET PO SCH ×3 (08:58→21:33)
[2019-01-23] MEDS: AZITHROMYCIN 500 MG in DEXTROSE 5% IN WATER 250 ML IV SCH (08:58)
--- NOTE | 2019-01-23 12:39 | Cat Scan Report ---
CLINICAL INFORMATION: COMPARISON: None. TECHNIQUE: 2.5 mm helical slices were obtained in the skull base to vertex. Following reconstruction, axial reformatted images were reviewed at bone and parenchymal windows. The exam was performed using radiation dose optimization techniques including, but not limited to, automated exposure control, adjustment of the mA and/or kV according to patient size and use of iterative reconstruction technique. FINDINGS: The ventricles, sulci, fissures, and cisterns are symmetrically enlarged compatible with moderate age-related atrophy. No extra-axial fluid collection or mass appreciated. Moderate patchy chronic ischemic changes noted in the deep cerebral white matter. There is no intracerebral hemorrhage, mass effect, edema or other acute finding. Bone windows show no osseous abnormality. There is opacification of the right maxillary and left sphenoid air cells and moderate mucosal thickening in the ethmoid sinuses. IMPRESSION: Moderate atrophy and chronic ischemic changes in the the cerebral white matter. No intracerebral hemorrhage or other acute finding. Severe left sphenoid, right maxillary and mild ethmoid sinusitis Interpreted and Authenticated by: Tigre Hill 01/23/19
[2019-01-23] MEDS ORDERED: diphenhydrAMINE 25 MG CAPSULE PO SCH (21:00)
[2019-01-24] MEDS: METOPROLOL TARTRATE 5 MG/5 ML VIAL IV PRN (00:37)
[2019-01-24] MEDS: IPRATROPIUM/ALBUTEROL 3 ML AMPUL.NEB NEB SCH ×4 (01:27→19:03)
[2019-01-24] MEDS: 0.9 % SODIUM CHLORIDE 10 ML SYRINGE IV SCH ×3 (05:48→22:03)
[2019-01-24 06:57] LABS: ALT/SGPT < 5 U/l (0-40); Albumin 2.9 gm/dL (3.2-5.2); Albumin/Globulin Ratio 0.8 (1.0-2.3); Alkaline Phosphatase 53 U/L (39-117); Bilirubin,Direct 0.2 mg/dL (0.0-0.3); Blood Urea Nitrogen 10 mg/dl (8-23); Gamma Glutamyl Transpeptidase 29 U/L (8-61); Uric Acid 3.4 mg/dL (2.5-8.0)
[2019-01-24] MEDS: INSULIN LISPRO 1 UNIT/0.01 ML UNIT SQ SCH ×4 (07:36→22:03)
--- NOTE | 2019-01-24 07:38 | Internal Med Progress Note ---
Medical - PN: Subj Patient information: Note initiated : 01/24/19 at 7:35 am Service Date, if different from initiated Date: [] Patient: Chad Wilkes 88 y/o M admitted on 01/21/19 for weakness. Chief Complaint: [] Interval history: Mr. Wilkes is a 88 year old M Who was diagnosed with influenza A Thursday along with his daughter who he lives with. Started on Tamiflu. However he is been quite debilitated since coming d own with the flu. Very weak and lethargic poor appetite. Because of his lack of improvement his family members brought him in. He had continued cough which is family says he just swallows so is unable to identify what the sputum looks like. He admits to cough denies shortness of breath feels weak and lethargic, denies fevers. In the ED is found to have a infiltrates in the right kidney left long also small in the right mid. Also has a history of atrial ablation was found to be in A. fib RVR and is required diltiazem drip. EKG strip was discussed with cardiology as well no acute concerns. He is tachypneic. Oxygenation was adequate. Family unable to care form as patient was so weak he was unable to get out of bed. He also has had some diarrhea this week, his daughter who has the flu also had some diarrhea this week. Lactic acid was okay, leukocytosis of 17 01/22 Slept okay. One point had a mild desaturation in the high 80s while sleeping. While awake off oxygen except for when he gets up to move, then he desaturates. Has a cough. Off diltiazem drip at this point. Was agitated last night started pulling at lines, suspect some underlying dementia. Quite unsteady on his feet per physical therapy. 01/23 Agitated last night and required Haldol. Confused this morning, and incoherent. cough but nurses unable to get sputum sample. 01/24 Slept better last night. Is able to communicate little better this morning with nurse and then went back to sleep. is at bedside at this time. I am able to understand his yes no responses but his further verbalizations are incomprehensible. Infectious markers are improving. Review of Systems: Unable to completely obtain but he says no to any headache fever chills and nausea vomiting. - Constitutional Vitals: Vital Signs Temp Pulse Resp BP Pulse Ox 97.7 F 106 H 20 120/91 96 01/24/19 04:00 01/23/19 19:00 01/23/19 19:00 01/24/19 06:00 01/23/19 22:01 Period Temp Pulse Resp BP Sys/Guzman Pulse Ox Last 24 Hr 97.7 F-97.7 F 100-106 17-28 101-158/59-142 94-100 Intake and Output 01/23/19 01/24/19 01/24/19 21:59 05:59 13:59 Intake Total 360 240 Balance 360 240 Weight 92.986 kg Intake & Output: Intake & Output 01/23/19 01/24/19 01/24/19 21:59 05:59 13:59 Intake Total 360 240 Balance 360 240 Weight 92.986 kg Intake: Oral 360 240 Other: # Voids 3 Exam: General: Awake, more alert today, no acute Distress Eyes/N/T: EOMI, Head/Neck: neck supple, CV: Mild tacky and irregular, Pulm: Continues clearing up, no wheezing/rales. Abd: soft, nontender, +BS x4 Ext: no clubbing/cyanosis/edema Neuro: Alert, no focal deficits, moves all extremities, Skin: warm/dry Medical - PN: Obj Da - Labs CBC & Chem 7: 01/23/19 03:53 01/24/19 03:36 Labs: Abnormal Lab Results 01/24/19 01/23/19 01/23/19 03:36 03:53 03:53 WBC RBC 3.95 L Hgb 12.6 L Hct 38.4 L Plt Count 138 L Gran % Lymph % (Auto) Gran # Lymph # (Auto) Chloride Creatinine 0.5 L 0.6 L Glucose Calcium Phosphorus 2.2 L 1.8 L Total Bilirubin Direct Bilirubin 0.4 H Myoglobin NT-Pro-B Natriuret Pep Albumin 2.9 L 3.0 L Albumin/Globulin Ratio 0.8 L 0.9 L Urine Protein Urine Occult Blood Urine Urobilinogen Urine Mucus 01/22/19 01/22/19 01/21/19 03:56 03:56 18:10 WBC 13.7 H RBC 3.89 L Hgb 12.5 L Hct 38.0 L Plt Count 120 L Gran % 85.3 H Lymph % (Auto) 11.1 L Gran # 11.7 H Lymph # (Auto) Chloride Creatinine Glucose Calcium 8.5 L Phosphorus 1.5 L Total Bilirubin 1.3 H Direct Bilirubin 0.4 H Myoglobin NT-Pro-B Natriuret Pep Albumin 2.8 L Albumin/Globulin Ratio 0.8 L Urine Protein 100 A Urine Occult Blood 0.03 A Urine Urobilinogen 4.0 A Urine Mucus Many A 01/21/19 01/21/19 14:05 14:05 WBC 16.9 H RBC Hgb Hct Plt Count 125 L Gran % 90.7 H Lymph % (Auto) 6.2 L Gran # 15.3 H Lymph # (Auto) 1.0 L Chloride 94 L Creatinine Glucose 132 H Calcium Phosphorus Total Bilirubin 1.7 H Direct Bilirubin Myoglobin 97 H NT-Pro-B Natriuret Pep 2888.0 H Albumin 3.1 L Albumin/Globulin Ratio 0.8 L Urine Protein Urine Occult Blood Urine Urobilinogen Urine Mucus Meds: Medications Acetaminophen (Tylenol) 650 mg PO Q6HP PRN PRN Reason: PAIN/FEVER > 101 Albuterol/Ipratropium (Duoneb) 3 ml NEB Q6HRT [facility] Last Admin: 01/24/19 01:27 Dose: Not Given Documented by: Albuterol/Ipratropium (Duoneb) 3 ml NEB Q4HP PRN PRN Reason: Shortness Of Breath Apixaban (Eliquis) 5 mg PO BID [facility] Last Admin: 01/23/19 21:33 Dose: 5 mg Documented by: Bisoprolol Fumarate (Zebeta) 10 mg PO QDAY [facility] Last Admin: 01/23/19 08:57 Dose: 10 mg Documented by: Carbidopa/Levodopa (Sinemet 25/100) 1 tab PO TID [facility] Last Admin: 01/23/19 21:33 Dose: 1 tab Documented by: Ceftriaxone Sodium (Rocephin) 1 gm IV DAILY [facility] Last Admin: 01/23/19 08:58 Dose: 1 gm Documented by: Dextrose (Dextrose 50%) 0 ml IV UD PRN PRN Reason: Hypoglycemia Diagnostic Test (Pha) (Accu-Chek) 1 each FS ACHS [facility] Last Admin: 01/24/19 07:10 Dose: 1 each Documented by: Famotidine (Pepcid) 20 mg PO BID [facility] Last Admin: 01/23/19 21:34 Dose: 20 mg Documented by: Glucose (Insta-Glucose) 15 gm PO PRN PRN PRN Reason: Hypoglycemia Potassium Chloride 40 meq/ (Dextrose) 520 mls @ 130 mls/hr IV ONCE PRN PRN Reason: Potassium < 3 Magnesium Sulfate (Magnesium Sulfate) 2 gm in 50 mls @ 50 mls/hr IV ONCE PRN PRN Reason: Magnesium </= 1.6 Insulin Human Lispro (Humalog) 0 unit SQ ACHS [facility]; Protocol Last Admin: 01/23/19 21:27 Dose: Not Given Documented by: Metoprolol Tartrate (Lopressor) 5 mg IV Q2HP PRN PRN Reason: Tachyarrhythmias Last Admin: 01/24/19 00:37 Dose: 5 mg Documented by: Ondansetron HCl (Zofran) 4 mg IV Q4HP PRN PRN Reason: Nausea And Vomiting Rasagiline Mesylate (1 Mg Tablet) 1 dose PO DAILY [facility] Last Admin: 01/23/19 08:57 Dose: 1 dose Documented by: Polyethylene Glycol (Miralax) 17 gm PO DAILYP PRN PRN Reason: Constipation Potassium Chloride (Kdur) 40 meq PO ONCE PRN PRN Reason: Potssium is 3-3.5 Potassium Chloride (Kdur) 40 meq PO ONCE PRN PRN Reason: Potassium < 3 Promethazine HCl (Phenergan) 0 mg PO Q6HP PRN PRN Reason: Nausea And Vomiting Sodium Chloride (Saline Flush) 10 ml IV Q8 [facility] Last Admin: 01/24/19 05:48 Dose: 10 ml Documented by: Medical - PN: A/P - Time Spent With Patient Total time spent is greater than 50% in coordination of care (as documented) at patient's floor/unit and/or counseling patient: - Narrative A/P Narrative: A: *Secondary bacterial pneumonia: 2/2 influenza A -leukocytosis resolved, PCT improving *Influenza A: *Afib RVR: On BB and Eliquis at home follows with Dr. De Los Santos *HTN: on bisoprolol and benazepril *Parkinson's: *AMS and night from likely underlying dementia 2/2 above: manifesting in hospital setting - -CT brain with moderate atrophy and chronic ischemic changes *DM: P: -Azithro/Rocephin -finished tamiflu -IS/Acapella -cont home BB(increased) and prn IV lopressor -held ACEI initially for low BP (BP better, but holding while titrating Bisoprolol) -seroquel bid with improved agitation -SSI -ST eval -PT/OT -ppx: home Eliquis Medical - PN: Qual - VTE Deep Vein Thrombosis/Pulmonary Embolism Present on Admission: No
[2019-01-24] MEDS: CARBIDOPA/LEVODOPA 25/100 TABLET PO SCH ×4 (09:25→21:02)
[2019-01-24] MEDS: FAMOTIDINE 20 MG TABLET PO SCH ×2 (09:26→21:02)
[2019-01-24] MEDS: BISOPROLOL 5 MG TABLET PO SCH (09:26)
[2019-01-24] MEDS: APIXABAN 5 MG TABLET PO SCH ×2 (09:26→21:02)
[2019-01-24] MEDS: cefTRIAXone 1 GM VIAL IV SCH (10:25)
[2019-01-24] MEDS ORDERED: QUEtiapine 25 MG TABLET PO SCH (17:53)
[2019-01-24] MEDS: QUEtiapine 25 MG TABLET PO SCH ×3 (18:12→21:02)
[2019-01-25] MEDS: IPRATROPIUM/ALBUTEROL 3 ML AMPUL.NEB NEB SCH ×4 (03:35→19:20)
[2019-01-25] MEDS: 0.9 % SODIUM CHLORIDE 10 ML SYRINGE IV SCH ×3 (06:00→19:59)
[2019-01-25 06:25] LABS: Basophils # (Auto) 0 K/mcL (0.0-0.3); Basophils % (Auto) 0.2 % (0.0-2.0); Eosinophils # (Auto) 0 K/mcL (0.0-0.7); Eosinophils % (Auto) 0.3 % (0.0-7.0); Granulocytes % (Auto) 74.1 % (38.0-78.0); Lymphocytes # (Auto) 1.3 K/mcL (1.5-4.8); Lymphocytes % (Auto) 15.4 % (15.5-49.0); Mean Cell Volume 96.7 fL (80.0-100.0); Mean Corpuscular HGB Conc 33.3 g/dL (31.0-36.0); Monocytes # (Auto) 0.8 K/mcL (0.1-0.9); Platelet Count 232 K/mcL (140-440); RBC 4.04 M/mcL (4.50-5.90); Red Cell Distribution Width 14.4 % (11.5-14.5)
[2019-01-25 06:55] LABS: ALT/SGPT 18 U/l (0-40); Albumin 3.1 gm/dL (3.2-5.2); Albumin/Globulin Ratio 0.9 (1.0-2.3); Alkaline Phosphatase 54 U/L (39-117); Bilirubin,Direct 0.2 mg/dL (0.0-0.3); Blood Urea Nitrogen 10 mg/dl (8-23); Gamma Glutamyl Transpeptidase 32 U/L (8-61); Uric Acid 3.1 mg/dL (2.5-8.0)
--- NOTE | 2019-01-25 08:40 | XRay Report ---
CLINICAL INFORMATION: pneumonia follow up COMPARISON: 01/22/2019 FINDINGS: Moderate cardiomegaly is unchanged. Mediastinum and pulmonary vessels are normal. Left lung infiltrate shows marked improvement with minimal residual in the perihilar and left basilar regions. Small patchy right midlung infiltrate has also improved. No significant effusion IMPRESSION: Marked improvement in the left lung infiltrate with minimal patchy residual in the perihilar and left basilar region. Small patchy right midlung infiltrate - also improved Interpreted and Authenticated by: Tigre Hill 01/25/19
[2019-01-25] MEDS: INSULIN LISPRO 1 UNIT/0.01 ML UNIT SQ SCH ×4 (09:50→20:15)
[2019-01-25] MEDS: FAMOTIDINE 20 MG TABLET PO SCH ×2 (09:52→19:59)
[2019-01-25] MEDS: CARBIDOPA/LEVODOPA 25/100 TABLET PO SCH ×3 (09:55→19:59)
[2019-01-25] MEDS: APIXABAN 5 MG TABLET PO SCH ×2 (09:55→19:59)
[2019-01-25] MEDS: cefTRIAXone 1 GM VIAL IV SCH (09:55)
[2019-01-25] MEDS ORDERED: POTASSIUM CHLORIDE 20 MEQ TABLET PO PRN ×2 (09:56)
[2019-01-25] MEDS ORDERED: DEXTROSE 50% 50 ML VIAL IV PRN (09:56)
[2019-01-25] MEDS ORDERED: IPRATROPIUM/ALBUTEROL 3 ML AMPUL.NEB NEB PRN (09:56)
[2019-01-25] MEDS: BISOPROLOL 5 MG TABLET PO SCH (09:56)
[2019-01-25] MEDS ORDERED: POTASSIUM CHLORIDE 40 MEQ in DEXTROSE 5% IN WATER 500 ML IV PRN (09:56)
[2019-01-25] MEDS ORDERED: METOPROLOL TARTRATE 5 MG/5 ML VIAL IV PRN (09:56)
[2019-01-25] MEDS ORDERED: ACETAMINOPHEN 325 MG TABLET PO PRN (09:56)
[2019-01-25] MEDS ORDERED: MAGNESIUM SULFATE 2 GM/50 ML BAG IV PRN (09:56)
[2019-01-25] MEDS ORDERED: PROMETHAZINE 25 MG TABLET PO PRN (09:56)
[2019-01-25] MEDS ORDERED: DEXTROSE 31 GM ORAL.SUSP PO PRN (09:56)
[2019-01-25] MEDS ORDERED: ONDANSETRON 4 MG/2 ML VIAL IV PRN (09:56)
[2019-01-25] MEDS ORDERED: POLYETHYLENE GLYCOL 3350 17 GM PACKET PO PRN (09:56)
--- NOTE | 2019-01-25 10:54 | Internal Med Progress Note ---
Medical - PN: Subj Patient information: Note initiated : 01/25/19 at 10:51 am Service Date, if different from initiated Date: [] Patient: Chad Wilkes 88 y/o M admitted on 01/21/19 for weakness. Chief Complaint: [] Interval history: Mr. Wilkes is a 88 year old M Who was diagnosed with influenza A Thursday along with his daughter who he lives with. Started on Tamiflu. However he is been quite debilitated since coming down with the flu. Very weak and lethargic poor appetite. Because of his lack of improvement his family members brought him in. He had continued cough which is family says he just swallows so is unable to identify what the sputum looks like. He admits to cough denies shortness of breath feels weak and lethargic, denies fevers. In the ED is found to have a infiltrates in the right kidney left long also small in the right mid. Also has a history of atrial ablation was found to be in A. fib RVR and is required diltiazem drip. EKG strip was discussed with cardiology as well no acute concerns. He is tachypneic. Oxygenation was adequate. Family unable to care form as patient was so weak he was unable to get out of bed. He also has had some diarrhea this week, his daughter who has the flu also had some diarrhea this week. Lactic acid was okay, leukocytosis of 17 01/22 Slept okay. One point had a mild desaturation in the high 80s while sleeping. While awake off oxygen except for when he gets up to move, then he desaturates. Has a cough. Off diltiazem drip at this point. Was agitated last night started pulling at lines, suspect some underlying dementia. Quite unsteady on his feet per physical therapy. 01/23 Agitated last night and required Haldol. Confused this morning, and incoherent. cough but nurses unable to get sputum sample. 01/24 Slept better last night. Is able to communicate little better this morning with nurse and then went back to sleep. is at bedside at this time. I am able to understand his yes no responses but his further verbalizations are incomprehensible. Infectious markers are improving. 01/25 Patient seen examined, no acute overnight issues, mental status better, able to follow commands, answer questions, but speech is quite garbled hemodynamically stable, labs st able, no oxygen needs xfer to med surg status, was givchase seroquel last night to see if it helps. will not be continued post discharge Pertinent ROS: Denies headache, dizziness Denies chest pain, palpitations Denies cough or shortness of breath Denies abdominal pain, nausea or vomiting. - Constitutional Vitals: Vital Signs Temp Pulse Resp BP Pulse Ox 98.0 F 98 H 18 129/98 95 01/25/19 08:01 01/25/19 07:28 01/25/19 10:01 01/25/19 10:01 01/25/19 08:01 Period Temp Pulse Resp BP Sys/Guzman Pulse Ox Last 24 Hr 98.0 F-98.8 F 95-98 16-22 107-152/36-131 94-95 Intake and Output 01/24/19 01/25/19 01/25/19 21:59 05:59 13:59 Intake Total 60 Output Total 101 3 Balance -101 -3 60 Weight 203 lb Intake & Output: Intake & Output 01/24/19 01/25/19 01/25/19 21:59 05:59 13:59 Intake Total 60 Output Total 101 3 Balance -101 -3 60 Weight 203 lb Intake: Oral 60 Output: Void Amount 100 # of times incontinent of urine 1 3 Other: Meal Lunch Breakfast Percent of Meal Consumed 50% 100% Feeding Ability Total Assistance Total Assistance Urine Appearance Clear Straight Sediment Urine Color Light Jessica Straight Dark Jessica Blood Tinged Urine Odor Strong Straight Strong Stool Size Moderate Stool Color Brown Stool Consistency Liquid Exam: Constitutional; Afebrile, cooperative, alert, not in distress. Respiratory system: Air Entry equal on both sides, No crackles or wheezing, no rhonchi. CVS- Rate rhythm regular, S1,S2 heard, no gallop, no rub. 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 but quite weak Medical - PN: Obj Da - Labs CBC & Chem 7: 01/25/19 03:45 01/25/19 03:45 Labs: Abnormal Lab Results 01/25/19 01/25/19 01/24/19 03:45 03:45 03:36 RBC 4.04 L Hgb 13.0 L Hct 39.1 L Plt Count Lymph % (Auto) 15.4 L Lymph # (Auto) 1.3 L Creatinine 0.6 L 0.5 L Phosphorus 2.0 L 2.2 L Direct Bilirubin Lactate Dehydrogenase 264 H Albumin 3.1 L 2.9 L Albumin/Globulin Ratio 0.9 L 0.8 L 01/23/19 01/23/19 03:53 03:53 RBC 3.95 L Hgb 12.6 L Hct 38.4 L Plt Count 138 L Lymph % (Auto) Lymph # (Auto) Creatinine 0.6 L Phosphorus 1.8 L Direct Bilirubin 0.4 H Lactate Dehydrogenase Albumin 3.0 L Albumin/Globulin Ratio 0.9 L Meds: Medications Acetaminophen (Tylenol) 650 mg PO Q6HP PRN PRN Reason: PAIN/FEVER > 101 Albuterol/Ipratropium (Duoneb) 3 ml NEB Q4HP PRN PRN Reason: Shortness Of Breath Albuterol/Ipratropium (Duoneb) 3 ml NEB Q6HRT [facility] Apixaban (Eliquis) 5 mg PO BID [facility] Bisoprolol Fumarate (Zebeta) 10 mg PO QDAY [facility] Carbidopa/Levodopa (Sinemet 25/100) 1 tab PO TID [facility] Ceftriaxone Sodium (Rocephin) 1 gm IV DAILY [facility] Dextrose (Dextrose 50%) 0 ml IV UD PRN PRN Reason: Hypoglycemia Diagnostic Test (Pha) (Accu-Chek) 1 each FS ACHS [facility] Famotidine (Pepcid) 20 mg PO BID [facility] Glucose (Insta-Glucose) 15 gm PO PRN PRN PRN Reason: Hypoglycemia Potassium Chloride 40 meq/ (Dextrose) 520 mls @ 130 mls/hr IV ONCE PRN PRN Reason: Potassium < 3 Magnesium Sulfate (Magnesium Sulfate) 2 gm in 50 mls @ 50 mls/hr IV ONCE PRN PRN Reason: Magnesium </= 1.6 Insulin Human Lispro (Humalog) 0 unit SQ ACHS [facility]; Protocol Metoprolol Tartrate (Lopressor) 5 mg IV Q2HP PRN PRN Reason: Tachyarrhythmias Ondansetron HCl (Zofran) 4 mg IV Q4HP PRN PRN Reason: Nausea And Vomiting Rasagiline Mesylate (1 Mg Tab) 1 dose PO DAILY [facility] Polyethylene Glycol (Miralax) 17 gm PO DAILYP PRN PRN Reason: Constipation Potassium Chloride (Kdur) 40 meq PO ONCE PRN PRN Reason: Potssium is 3-3.5 Potassium Chloride (Kdur) 40 meq PO ONCE PRN PRN Reason: Potassium < 3 Promethazine HCl (Phenergan) 0 mg PO Q6HP PRN PRN Reason: Nausea And Vomiting Quetiapine Fumarate (Seroquel) 50 mg PO HS [facility] Sodium Chloride (Saline Flush) 10 ml IV Q8 [facility] Medical - PN: A/P - Time Spent With Patient Total time spent is greater than 50% in coordination of care (as documented) at patient's floor/unit and/or counseling patient: - Narrative A/P Narrative: A: *Secondary bacterial pneumonia: 2/2 influenza A -leukocytosis resolved, PCT improving, *Influenza A: *Afib RVR: On BB and Eliquis at home follows with Dr. De Los Santos *HTN: on bisoprolol and benazepril *Parkinson's: *AMS and night from likely underlying dementia 2/2 above: manifesting in hospita l setting - -CT brain with moderate atrophy and chronic ischemic changes *DM: P: -on rocephin, finished zithromax 500mg x 3 days, cultures neg for staph, -finished tamiflu -IS/Acapella -cont home BB bisoprolol, start TELMA inhibitor. -Seroquel qhs -SSI -ST eval -PT/OT -ppx: home Eliquis if remains stable, anticipate d/c to SNF In AM. Medical - PN: Qual - VTE Deep Vein Thrombosis/Pulmonary Embolism Present on Admission: No
[2019-01-25] MEDS: LISINOPRIL 20 MG TABLET PO SCH (11:59)
[2019-01-25] MEDS: QUEtiapine 25 MG TABLET PO SCH (19:59)
[2019-01-26] MEDS: IPRATROPIUM/ALBUTEROL 3 ML AMPUL.NEB NEB SCH ×4 (00:24→18:23)
[2019-01-26] MEDS: 0.9 % SODIUM CHLORIDE 10 ML SYRINGE IV SCH ×3 (05:54→21:49)
[2019-01-26 07:05] LABS: Basophils # (Auto) 0 K/mcL (0.0-0.3); Basophils % (Auto) 0.1 % (0.0-2.0); Eosinophils # (Auto) 0.1 K/mcL (0.0-0.7); Granulocytes % (Auto) 75.4 % (38.0-78.0); Lymphocytes # (Auto) 1.5 K/mcL (1.5-4.8); Lymphocytes % (Auto) 16.5 % (15.5-49.0); Mean Cell Volume 96.1 fL (80.0-100.0); Mean Corpuscular HGB Conc 33.4 g/dL (31.0-36.0); Monocytes # (Auto) 0.6 K/mcL (0.1-0.9); Platelet Count 265 K/mcL (140-440); RBC 4.08 M/mcL (4.50-5.90); Red Cell Distribution Width 13.4 % (11.5-14.5)
[2019-01-26 07:31] LABS: ALT/SGPT 8 U/l (0-40); Albumin 2.8 gm/dL (3.2-5.2); Albumin/Globulin Ratio 0.8 (1.0-2.3); Alkaline Phosphatase 55 U/L (39-117); Bilirubin,Direct 0.2 mg/dL (0.0-0.3); Blood Urea Nitrogen 11 mg/dl (8-23); Gamma Glutamyl Transpeptidase 31 U/L (8-61); Uric Acid 2.7 mg/dL (2.5-8.0)
[2019-01-26] MEDS: INSULIN LISPRO 1 UNIT/0.01 ML UNIT SQ SCH ×4 (08:30→21:52)
[2019-01-26] MEDS: FAMOTIDINE 20 MG TABLET PO SCH (08:31)
[2019-01-26] MEDS: cefTRIAXone 1 GM VIAL IV SCH (08:31)
[2019-01-26] MEDS: CARBIDOPA/LEVODOPA 25/100 TABLET PO SCH ×2 (08:31→15:25)
[2019-01-26] MEDS: APIXABAN 5 MG TABLET PO SCH (08:32)
[2019-01-26] MEDS: LISINOPRIL 20 MG TABLET PO SCH (08:32)
[2019-01-26] MEDS: BISOPROLOL 5 MG TABLET PO SCH (08:32)
--- NOTE | 2019-01-26 19:08 | Internal Med Progress Note ---
Medical - PN: Subj Patient information: Note initiated : 01/26/19 at 7:06 pm Service Date, if different from initiated Date: [] Patient: Chad Wilkes 88 y/o M admitted on 01/21/19 for weakness. Chief Complaint: [] Interval history: Mr. Wilkes is a 88 year old M Who was diagnosed with influenza A Thursday along with his daughter who he lives with. Started on Tamiflu. However he is been quite debilitated since coming d own with the flu. Very weak and lethargic poor appetite. Because of his lack of improvement his family members brought him in. He had continued cough which is family says he just swallows so is unable to identify what the sputum looks like. He admits to cough denies shortness of breath feels weak and lethargic, denies fevers. In the ED is found to have a infiltrates in the right kidney left long also small in the right mid. Also has a history of atrial ablation was found to be in A. fib RVR and is required diltiazem drip. EKG strip was discussed with cardiology as well no acute concerns. He is tachypneic. Oxygenation was adequate. Family unable to care form as patient was so weak he was unable to get out of bed. He also has had some diarrhea this week, his daughter who has the flu also had some diarrhea this week. Lactic acid was okay, leukocytosis of 17 01/22 Slept okay. One point had a mild desaturation in the high 80s while sleeping. While awake off oxygen except for when he gets up to move, then he desaturates. Has a cough. Off diltiazem drip at this point. Was agitated last night started pulling at lines, suspect some underlying dementia. Quite unsteady on his feet per physical therapy. 01/23 Agitated last night and required Haldol. Confused this morning, and incoherent. cough but nurses unable to get sputum sample. 01/24 Slept better last night. Is able to communicate little better this morning with nurse and then went back to sleep. is at bedside at this time. I am able to understand his yes no responses but his further verbalizations are incomprehensible. Infectious markers are improving. 01/25 Patient seen examined, no acute overnight issues, mental status better, able to follow commands, answer questions, but speech is quite garbled hemodynamically stable, labs st able, no oxygen needs xfer to med surg status, was kimberly maria last night to see if it helps. will not be continued post discharge 01/26 Patient is in examined, overnight was confused, however has not worsened since yesterday. He was sitting in chair, had finished his supper at the time of my evaluation. Denies any acute complaints or concerns. Anticipate discharge tomorrow if remains stable to snf he will need to watch bed The patient speech is garbled but slowly improving, mental status was much better today compared to yesterday Pertinent ROS: Denies headache, dizziness Denies chest pain, palpitations Denies cough or shortness of breath Denies abdominal pain, nausea or vomiting. - Constitutional Vitals: Vital Signs Temp Pulse Resp BP Pulse Ox 97.6 F 110 H 16 114/67 97 01/26/19 15:57 01/26/19 18:25 01/26/19 18:25 01/26/19 15:57 01/26/19 15:57 Period Temp Pulse Resp BP Sys/Guzman Pulse Ox Last 24 Hr 97.4 F-97.7 F 81-110 16-28 92-150/64-86 93-97 Intake and Output 01/26/19 01/26/19 01/26/19 05:59 13:59 21:59 Intake Total 0 120 Output Total 1 1100 Balance -1 -980 Intake & Output: Intake & Output 01/26/19 01/26/19 01/26/19 05:59 13:59 21:59 Intake Total 0 120 Output Total 1 1100 Balance -1 -980 Intake: Oral 0 120 Output: Urine Catheter Amount 1100 Uretheral ([place]) 1100 # of times incontinent of urine 1 Other: Meal Breakfast Lunch Percent of Meal Consumed 50% 50% Feeding Ability Total Assistance Assist with Tray Set Up Urine Appearance Uretheral ([place]) Cloudy Urine Color Uretheral ([place]) Dark Jessica Urine Odor Uretheral ([place]) Strong Exam: Constitutional; Afebrile, cooperative, alert, not in distress. Respiratory system: Air Entry equal on both sides, No crackles or wheezing, no rhonchi. CVS- Rate rhythm regular, S1,S2 heard, no gallop, no rub. 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 Medical - PN: Obj Da - Labs CBC & Chem 7: 01/26/19 04:15 01/26/19 04:15 Labs: Abnormal Lab Results 01/26/19 01/26/19 01/25/19 04:15 04:15 03:45 RBC 4.08 L Hgb 13.1 L Hct 39.2 L Lymph % (Auto) Lymph # (Auto) Creatinine 0.6 L 0.6 L Phosphorus 2.5 L 2.0 L Lactate Dehydrogenase 257 H 264 H Albumin 2.8 L 3.1 L Albumin/Globulin Ratio 0.8 L 0.9 L 01/25/19 01/24/19 03:45 03:36 RBC 4.04 L Hgb 13.0 L Hct 39.1 L Lymph % (Auto) 15.4 L Lymph # (Auto) 1.3 L Creatinine 0.5 L Phosphorus 2.2 L Lactate Dehydrogenase Albumin 2.9 L Albumin/Globulin Ratio 0.8 L Meds: Medications Acetaminophen (Tylenol) 650 mg PO Q6HP PRN PRN Reason: PAIN/FEVER > 101 Albuterol/Ipratropium (Duoneb) 3 ml NEB Q4HP PRN PRN Reason: Shortness Of Breath Albuterol/Ipratropium (Duoneb) 3 ml NEB Q6HRT [facility] Last Admin: 01/26/19 18:23 Dose: 3 ml Documented by: Apixaban (Eliquis) 5 mg PO BID [facility] Last Admin: 01/26/19 08:32 Dose: 5 mg Documented by: Bisoprolol Fumarate (Zebeta) 10 mg PO QDAY [facility] Last Admin: 01/26/19 08:32 Dose: 10 mg Documented by: Carbidopa/Levodopa (Sinemet 25/100) 1 tab PO TID [facility] Last Admin: 01/26/19 15:25 Dose: 1 tab Documented by: Ceftriaxone Sodium (Rocephin) 1 gm IV DAILY [facility] Last Admin: 01/26/19 08:31 Dose: 1 gm Documented by: Dextrose (Dextrose 50%) 0 ml IV UD PRN PRN Reason: Hypoglycemia Diagnostic Test (Pha) (Accu-Chek) 1 each FS ACHS [facility] Last Admin: 01/26/19 17:49 Dose: 1 each Documented by: Famotidine (Pepcid) 20 mg PO BID [facility] Last Admin: 01/26/19 08:31 Dose: 20 mg Documented by: Glucose (Insta-Glucose) 15 gm PO PRN PRN PRN Reason: Hypoglycemia Potassium Chloride 40 meq/ (Dextrose) 520 mls @ 130 mls/hr IV ONCE PRN PRN Reason: Potassium < 3 Magnesium Sulfate (Magnesium Sulfate) 2 gm in 50 mls @ 50 mls/hr IV ONCE PRN PRN Reason: Magnesium </= 1.6 Insulin Human Lispro (Humalog) 0 unit SQ ACHS [facility]; Protocol Last Admin: 01/26/19 17:49 Dose: Not Given Documented by: Lisinopril (Zestril) 20 mg PO DAILY [facility] Last Admin: 01/26/19 08:32 Dose: 20 mg Documented by: Metoprolol Tartrate (Lopressor) 5 mg IV Q2HP PRN PRN Reason: Tachyarrhythmias Ondansetron HCl (Zofran) 4 mg IV Q4HP PRN PRN Reason: Nausea And Vomiting Rasagiline Mesylate (1 Mg Tab) 1 dose PO DAILY [facility] Last Admin: 01/26/19 08:52 Dose: Not Given Documented by: Polyethylene Glycol (Miralax) 17 gm PO DAILYP PRN PRN Reason: Constipation Potassium Chloride (Kdur) 40 meq PO ONCE PRN PRN Reason: Potssium is 3-3.5 Potassium Chloride (Kdur) 40 meq PO ONCE PRN PRN Reason: Potassium < 3 Promethazine HCl (Phenergan) 0 mg PO Q6HP PRN PRN Reason: Nausea And Vomiting Quetiapine Fumarate (Seroquel) 50 mg PO HS [facility] Last Admin: 01/25/19 19:59 Dose: 50 mg Documented by: Sodium Chloride (Saline Flush) 10 ml IV Q8 [facility] Last Admin: 01/26/19 15:26 Dose: 10 ml Documented by: Medical - PN: A/P - Time Spent With Patient Total time spent is greater than 50% in coordination of care (as documented) at patient's floor/unit and/or counseling patient: - Narrative A/P Narrative: A: *Secondary bacterial pneumonia: 2/2 influenza A -leukocytosis resolved, PCT improving, *Influenza A: *Afib RVR: On BB and Eliquis at home follows with Dr. De Los Santos *HTN: on bisoprolol and benazepril *Parkinson's: *AMS and night from likely underlying dementia 2/2 above: manifesting in hospital setting - -CT brain with moderate atrophy and chronic ischemic changes *DM: Oropharyngeal dysphagia P: -on rocephin, finished zithromax 500mg x 3 days, cultures neg for staph, -finished tamiflu -IS/Acapella -cont home BB bisoprolol, start TELMA inhibitor. -Seroquel qhs -SSI -ST eval for dysphagia, and diet reccs, work with gloria speech -PT/OT -ppx: home Eliquis if remains stable, anticipate d/c to SNF In AM. Spent > 15 mins discussing patient care with his son Mr Addison wilkes at [phone], all questions answered. Medical - PN: Qual - VTE Deep Vein Thrombosis/Pulmonary Embolism Present on Admission: No
[2019-01-27] MEDS: QUEtiapine 25 MG TABLET PO SCH ×2 (01:26→20:45)
[2019-01-27] MEDS: APIXABAN 5 MG TABLET PO SCH ×3 (01:26→20:45)
[2019-01-27] MEDS: FAMOTIDINE 20 MG TABLET PO SCH ×3 (01:26→20:46)
[2019-01-27] MEDS: CARBIDOPA/LEVODOPA 25/100 TABLET PO SCH ×4 (01:27→20:46)
[2019-01-27] MEDS: IPRATROPIUM/ALBUTEROL 3 ML AMPUL.NEB NEB SCH ×3 (01:31→14:01)
[2019-01-27] MEDS: 0.9 % SODIUM CHLORIDE 10 ML SYRINGE IV SCH ×4 (06:00→20:46)
[2019-01-27 07:12] LABS: Basophils # (Auto) 0 K/mcL (0.0-0.3); Basophils % (Auto) 0.1 % (0.0-2.0); Eosinophils # (Auto) 0 K/mcL (0.0-0.7); Eosinophils % (Auto) 0.2 % (0.0-7.0); Granulocytes % (Auto) 81.2 % (38.0-78.0); Lymphocytes # (Auto) 0.9 K/mcL (1.5-4.8); Lymphocytes % (Auto) 10.5 % (15.5-49.0); Mean Cell Volume 97.7 fL (80.0-100.0); Mean Corpuscular HGB Conc 32.9 g/dL (31.0-36.0); Monocytes # (Auto) 0.7 K/mcL (0.1-0.9); Platelet Count 289 K/mcL (140-440); Red Cell Distribution Width 14.1 % (11.5-14.5)
[2019-01-27] MEDS: INSULIN LISPRO 1 UNIT/0.01 ML UNIT SQ SCH ×4 (07:40→20:45)
[2019-01-27 07:57] LABS: ALT/SGPT 9 U/l (0-40); Albumin 2.7 gm/dL (3.2-5.2); Albumin/Globulin Ratio 0.7 (1.0-2.3); Alkaline Phosphatase 55 U/L (39-117); Bilirubin,Direct < 0.2 mg/dL (0.0-0.3); Blood Urea Nitrogen 11 mg/dl (8-23); Gamma Glutamyl Transpeptidase 34 U/L (8-61); Uric Acid 2.8 mg/dL (2.5-8.0)
--- NOTE | 2019-01-27 09:23 | Cat Scan Report ---
CLINICAL INFORMATION: Altered mental status COMPARISON: None. TECHNIQUE: 2.5 mm helical slices were obtained in the skull base to vertex. Following reconstruction, axial reformatted images were reviewed at bone and parenchymal windows. The exam was performed using radiation dose optimization techniques including, but not limited to, automated exposure control, adjustment of the mA and/or kV according to patient size and use of iterative reconstruction technique. FINDINGS: The ventricles, sulci, fissures, and cisterns are symmetrically enlarged compatible with moderate atrophy - no extra-axial fluid collections or masses appreciated. Mild patchy chronic ischemic changes throughout white matter, expected for age, are unchanged. There is no intracerebral hemorrhage, mass effect, edema or other acute finding. Bone windows show complete opacification right maxillary, left sphenoid and left posterior ethmoid air cells patible with sinusitis. No osseous abnormality IMPRESSION: Mild atrophy and chronic ischemic changes in deep cerebral white matter - expected for age. No change. Severe left sphenoid right maxillary and left posterior ethmoid sinusitis and mild left mastoiditis. Interpreted and Authenticated by: Tigre Hill 01/27/19
--- NOTE | 2019-01-27 09:28 | XRay Report ---
CLINICAL INFORMATION: altered mental status COMPARISON: 12/28/2018. FINDINGS: Moderate cardiomegaly is unchanged. Mediastinum and pulmonary vessels are normal. Minimal residual left perihilar infiltrate is unchanged. Right perihilar infiltrate has improved and is now small. Mild left basilar atelectasis noted. No definite effusion IMPRESSION: Continued improvement of small perihilar infiltrates Moderate cardiomegaly, but no evidence of CHF on today's x-ray Interpreted and Authenticated by: Tigre Hill 01/27/19
[2019-01-27] MEDS: LEVOFLOXACIN 500 MG/100 ML BAG IV SCH (10:30)
[2019-01-27] MEDS: TAMSULOSIN 0.4 MG CAPSULE PO SCH (10:34)
[2019-01-27] MEDS: LISINOPRIL 20 MG TABLET PO SCH (10:35)
[2019-01-27] MEDS: BISOPROLOL 5 MG TABLET PO SCH (10:35)
--- NOTE | 2019-01-27 11:08 | Internal Med Progress Note ---
Medical - PN: Subj Patient information: Note initiated : 01/27/19 at 11:04 am Service Date, if different from initiated Date: [] Patient: Chad Wilkes 88 y/o M admitted on 01/21/19 for weakness. Chief Complaint: [] Interval history: Mr. Wilkes is a 88 year old M Who was diagnosed with influenza A Thursday along with his daughter who he lives with. Started on Tamiflu. However he is been quite debilitated since coming down with the flu. Very weak and lethargic poor appetite. Because of his lack of improvement his family members brought him in. He had continued cough which is family says he just swallows so is unable to identify what the sputum looks like. He admits to cough denies shortness of breath feels weak and lethargic, denies fevers. In the ED is found to have a infiltrates in the right kidney left long also small in the right mid. Also has a history of atrial ablation was found to be in A. fib RVR and is required diltiazem drip. EKG strip was discussed with cardiology as well no acute concerns. He is tachypneic. Oxygenation was adequate. Family unable to care form as patient was so weak he was unable to get out of bed. He also has had some diarrhea this week, his daughter who has the flu also had some diarrhea this week. Lactic acid was okay, leukocytosis of 17 01/22 Slept okay. One point had a mild desaturation in the high 80s while sleeping. While awake off oxygen except for when he gets up to move, then he desaturates. Has a cough. Off diltiazem drip at this point. Was agitated last night started pulling at lines, suspect some underlying dementia. Quite unsteady on his feet per physical therapy. 01/23 Agitated last night and required Haldol. Confused this morning, and incoherent. cough but nurses unable to get sputum sample. 01/24 Slept better last night. Is able to communicate little better this morning with nurse and then went back to sleep. is at bedside at this time. I am able to understand his yes no responses but his further verbalizations are incomprehensible. Infectious markers are improving. 01/25 Patient seen examined, no acute overnight issues, mental status better, able to follow commands, answer questions, but speech is quite garbled hemodynamically stable, labs st able, no oxygen needs xfer to med surg status, was kimberly maria last night to see if it helps. will not be continued post discharge 01/26 Patient is in examined, overnight was confused, however has not worsened since yesterday. He was sitting in chair, had finished his supper at the time of my evaluation. Denies any acute complaints or concerns. Anticipate discharge tomorrow if remains stable to snf he will need to watch bed The patient speech is garbled but slowly improving, mental status was much better today compared to yesterday 01/27 Patient seen examined, very drowsy today, sleeping very deeply, only responds to deep stimulyus, or very loud voice Head CT done is negative Xray shows continued improvement in Pna ABG is neg for any acute co2 retention or acidosis The patient has not slept for a few days, and is likely catching up. will not discharge today and continue to observe Glucose level was 92 Pertinent ROS: unable, drowsy - Constitutional Vitals: Vital Signs Temp Pulse Resp BP Pulse Ox 98.6 F 114 H 16 131/87 90 01/27/19 07:40 01/27/19 03:15 01/27/19 07:40 01/27/19 07:40 01/27/19 03:15 Period Temp Pulse Resp BP Sys/Guzman Pulse Ox Last 24 Hr 97.2 F-98.6 F 81-115 16-28 95-133/67-91 90-97 Intake and Output 01/26/19 01/27/19 01/27/19 21:59 05:59 13:59 Intake Total 240 180 Output Total 650 Balance 240 -470 Weight 202 lb Intake & Output: Intake & Output 01/26/19 01/27/19 01/27/19 21:59 05:59 13:59 Intake Total 240 180 Output Total 650 Balance 240 -470 Weight 202 lb Intake: Oral 240 180 Output: Urine Catheter Amount 650 Other: Meal Dinner Percent of Meal Consumed 100% Feeding Ability Independent Urine Appearance Clear Uretheral ([place]) Clear Urine Color Dark Jessica Uretheral ([place]) Dark Jessica Exam: Constitutional; Afebrile, drowsy, not in distress. Respiratory system: Air Entry equal on both sides, No crackles or wheezing, no rhonchi. CVS- Rate rhythm regular, S1,S2 heard, no gallop, no rub. Abdomen- Soft nontender abdomen, no organomegaly, no tenderness, no guarding or rigidity, [employer] INCOME- AOOx0, moving all extremities, to stimuli Medical - PN: Obj Da - Labs CBC & Chem 7: 01/27/19 04:10 01/27/19 04:10 Labs: Abnormal Lab Results 01/27/19 01/27/19 01/26/19 04:10 04:10 04:15 RBC 4.00 L Hgb 12.9 L Hct 39.1 L Gran % 81.2 H Lymph % (Auto) 10.5 L Lymph # (Auto) 0.9 L Creatinine 0.6 L 0.6 L Calcium 8.5 L Phosphorus 2.5 L Lactate Dehydrogenase 257 H Albumin 2.7 L 2.8 L Globulin 3.8 H Albumin/Globulin Ratio 0.7 L 0.8 L 01/26/19 01/25/19 01/25/19 04:15 03:45 03:45 RBC 4.08 L 4.04 L Hgb 13.1 L 13.0 L Hct 39.2 L 39.1 L Gran % Lymph % (Auto) 15.4 L Lymph # (Auto) 1.3 L Creatinine 0.6 L Calcium Phosphorus 2.0 L Lactate Dehydrogenase 264 H Albumin 3.1 L Globulin Albumin/Globulin Ratio 0.9 L Meds: Medications Acetaminophen (Tylenol) 650 mg PO Q6HP PRN PRN Reason: PAIN/FEVER > 101 Albuterol/Ipratropium (Duoneb) 3 ml NEB Q4HP PRN PRN Reason: Shortness Of Breath Albuterol/Ipratropium (Duoneb) 3 ml NEB Q6HRT [facility] Last Admin: 01/27/19 08:24 Dose: Not Given Documented by: Apixaban (Eliquis) 5 mg PO BID [facility] Last Admin: 01/27/19 10:34 Dose: Not Given Documented by: Bisoprolol Fumarate (Zebeta) 10 mg PO QDAY [facility] Last Admin: 01/27/19 10:35 Dose: Not Given Documented by: Carbidopa/Levodopa (Sinemet 25/100) 1 tab PO TID [facility] Last Admin: 01/27/19 10:34 Dose: Not Given Documented by: Dextrose (Dextrose 50%) 0 ml IV UD PRN PRN Reason: Hypoglycemia Diagnostic Test (Pha) (Accu-Chek) 1 each FS ACHS [facility] Last Admin: 01/27/19 07:40 Dose: 1 each Documented by: Famotidine (Pepcid) 20 mg PO BID [facility] Last Admin: 01/27/19 10:34 Dose: Not Given Documented by: Glucose (Insta-Glucose) 15 gm PO PRN PRN PRN Reason: Hypoglycemia Potassium Chloride 40 meq/ (Dextrose) 520 mls @ 130 mls/hr IV ONCE PRN PRN Reason: Potassium < 3 Magnesium Sulfate (Magnesium Sulfate) 2 gm in 50 mls @ 50 mls/hr IV ONCE PRN PRN Reason: Magnesium </= 1.6 Levofloxacin (Levaquin) 500 mg in 100 mls @ 100 mls/hr IV Q24H [facility] Last Admin: 01/27/19 10:30 Dose: 100 mls/hr Documented by: Insulin Human Lispro (Humalog) 0 unit SQ [facility]; Protocol Last Admin: 01/27/19 07:40 Dose: Not Given Documented by: Lisinopril (Zestril) 20 mg PO DAILY [facility] Last Admin: 01/27/19 10:35 Dose: Not Given Documented by: Metoprolol Tartrate (Lopressor) 5 mg IV Q2HP PRN PRN Reason: Tachyarrhythmias Ondansetron HCl (Zofran) 4 mg IV Q4HP PRN PRN Reason: Nausea And Vomiting Rasagiline Mesylate (1 Mg Tab) 1 dose PO DAILY [facility] Last Admin: 01/27/19 10:34 Dose: Not Given Documented by: Polyethylene Glycol (Miralax) 17 gm PO DAILYP PRN PRN Reason: Constipation Potassium Chloride (Kdur) 40 meq PO ONCE PRN PRN Reason: Potssium is 3-3.5 Potassium Chloride (Kdur) 40 meq PO ONCE PRN PRN Reason: Potassium < 3 Promethazine HCl (Phenergan) 0 mg PO Q6HP PRN PRN Reason: Nausea And Vomiting Quetiapine Fumarate (Seroquel) 50 mg PO HS [facility] Last Admin: 01/27/19 01:26 Dose: Not Given Documented by: Sodium Chloride (Saline Flush) 10 ml IV Q8 [facility] Last Admin: 01/27/19 06:00 Dose: Not Given Documented by: Tamsulosin HCl (Flomax) 0.4 mg PO DAILY [facility] Last Admin: 01/27/19 10:34 Dose: Not Given Documented by: Medical - PN: A/P - Time Spent With Patient Total time spent is greater than 50% in coordination of care (as documented) at patient's floor/unit and/or counseling patient: - Narrative A/P Narrative: A: *Secondary bacterial pneumonia: 2/2 influenza A -leukocytosis resolved, PCT improving, *Influenza A: *Afib RVR: On BB and Eliquis at home follows with Dr. De Los Santos *HTN: on bisoprolol and benazepril *Parkinson's: *AMS and night from likely underlying dementia 2/2 above: manifesting in hospital setting - -CT brain with moderate atrophy and chronic ischemic changes *DM: Oropharyngeal dysphagia P: -on rocephin, finished zithromax 500mg x 3 days, cultures neg for staph, -finished tamiflu -IS/Acapella as tolerated -cont home BB bisoprolol, started TELMA inhibitor. -Seroquel qhs -SSI for glucose control -ST eval for dysphagia, and diet reccs, work with garbling speech -PT/OT -ppx: home Eliquis Patient is quite drowsy today, and not following command, will hold off on discharge, monitor closely. Medical - PN: Qual - VTE Deep Vein Thrombosis/Pulmonary Embolism Present on Admission: No
[2019-01-27] MEDS: cefTRIAXone 1 GM VIAL IV SCH (16:01)
[2019-01-28 07:03] LABS: Basophils # (Auto) 0 K/mcL (0.0-0.3); Basophils % (Auto) 0.2 % (0.0-2.0); Eosinophils # (Auto) 0.1 K/mcL (0.0-0.7); Eosinophils % (Auto) 1.3 % (0.0-7.0); Granulocytes % (Auto) 72.7 % (38.0-78.0); Lymphocytes # (Auto) 1.2 K/mcL (1.5-4.8); Lymphocytes % (Auto) 18.1 % (15.5-49.0); Mean Cell Volume 97.5 fL (80.0-100.0); Mean Corpuscular HGB Conc 33.1 g/dL (31.0-36.0); Monocytes # (Auto) 0.5 K/mcL (0.1-0.9); Monocytes % (Auto) 7.7 % (1.0-12.0); Platelet Count 303 K/mcL (140-440); RBC 4.01 M/mcL (4.50-5.90); Red Cell Distribution Width 14.2 % (11.5-14.5)
[2019-01-28 07:20] LABS: ALT/SGPT < 5 U/l (0-40); Albumin 2.7 gm/dL (3.2-5.2); Albumin/Globulin Ratio 0.7 (1.0-2.3); Alkaline Phosphatase 52 U/L (39-117); Bilirubin,Direct 0.2 mg/dL (0.0-0.3); Blood Urea Nitrogen 10 mg/dl (8-23); Gamma Glutamyl Transpeptidase 32 U/L (8-61); Uric Acid 2.7 mg/dL (2.5-8.0)
[2019-01-28] MEDS: 0.9 % SODIUM CHLORIDE 10 ML SYRINGE IV SCH (07:54)
[2019-01-28] MEDS: INSULIN LISPRO 1 UNIT/0.01 ML UNIT SQ SCH (07:55)
[2019-01-28] MEDS: TAMSULOSIN 0.4 MG CAPSULE PO SCH (08:51)
[2019-01-28] MEDS: LEVOFLOXACIN 500 MG/100 ML BAG IV SCH (08:51)
[2019-01-28] MEDS: APIXABAN 5 MG TABLET PO SCH (08:52)
[2019-01-28] MEDS: CARBIDOPA/LEVODOPA 25/100 TABLET PO SCH (08:52)
[2019-01-28] MEDS: FAMOTIDINE 20 MG TABLET PO SCH (08:52)
[2019-01-28] MEDS: LISINOPRIL 20 MG TABLET PO SCH (08:52)
[2019-01-28] MEDS: BISOPROLOL 5 MG TABLET PO SCH (08:52)
--- NOTE | 2019-01-28 10:14 | Discharge Summary ---
Medical - DS: Prov Patient information: Note initiated : 01/28/19 at 10:11 am Service Date, if different from initiated Date: [] Patient: Chad Wilkes 88 y/o M admitted on 01/21/19 for weakness. Chief Complaint: [] Date of admission: 01/21/19 16:46 Discharge date: 01/28/19 Primary care physician: Twyla Fay Consults: 01/21/19 15:36 Consult to Physician [CONS] Stat Comment: Consulting Provider: David Mistry Reason For Exam: Physician to Consult Discharging clinician: Samantha Guerra Medical - DS: Meds - Discharge Medications Active and Home Medications: Home Medications Centrum Complete Multivit Tab 1 tab PO QDAY 12/26/15 [History Confirmed 01/21/19 Last Taken 01/18/19] apixaban 5 mg tablet 5 mg PO BID #1 tab 01/19/19 [Rx Confirmed 01/21/19 Last Taken 01/18/19] benazepril 20 mg tablet 20 mg PO QDAY #1 tab 01/19/19 [Rx Confirmed 01/21/19 Last Taken 01/18/19] bisoprolol fumarate 5 mg tablet 5 mg PO QDAY #1 tab 01/19/19 [Rx Confirmed 01/21/19 Last Taken 01/18/19] carbidopa 25 mg-levodopa 100 mg tablet 1 tab PO TID #1 tab 01/19/19 [Rx Confirmed 01/21/19 Last Taken 01/18/19] metformin 500 mg tablet 500 mg PO QDAY #1 tab 01/19/19 [Rx Confirmed 01/21/19 Last Taken 01/18/19] pioglitazone 45 mg tablet 45 mg PO QDAY #1 tab 01/19/19 [Rx Confirmed 01/21/19 Last Taken 01/18/19] rasagiline 1 mg tablet 1 mg PO QDAY #1 tab 01/19/19 [Rx Confirmed 01/21/19 Last Taken 01/18/19] Medical - DS: Hosp Hospital course: Mr. Wilkes is a 88 year old M Who was diagnosed with influenza A Thursday along with his daughter who he lives with. Started on Tamiflu. However he is been quite debilitated since coming down with the flu. Very weak and lethargic poor appetite. Because of his lack of improvement his family members brought him in. He had continued cough which is family says he just swallows so is unable to identify what the sputum looks like. He admits to cough denies shortness of breath feels weak and lethargic, denies fevers. In the ED is found to have a infiltrates in the right kidney left long also small in the right mid. Also has a history of atrial ablation was found to be in A. fib RVR and is required diltiazem drip. EKG strip was discussed with cardiology as well no acute concerns. He is tachypneic. Oxygenation was adequate. Family unable to care form as patient was so weak he was unable to get out of bed. He also has had some diarrhea this week, his daughter who has the flu also had some diarrhea this week. Lactic acid was okay, leukocytosis of 17 01/22 Slept okay. One point had a mild desaturation in the high 80s while sleeping. While awake off oxygen except for when he gets up to move, then he desaturates. Has a cough. Off diltiazem drip at this point. Was agitated last night started pulling at lines, suspect some underlying dementia. Quite unsteady on his feet per physical therapy. 01/23 Agitated last night and required Haldol. Confused this morning, and incoherent. cough but nurses unable to get sputum sample. 01/24 Slept better last night. Is able to communicate little better this morning with nurse and then went back to sleep. is at bedside at this time. I am able to understand his yes no responses but his further verbalizations are incomprehensible. Infectious markers are improving. 01/25 Patient seen examined, no acute overnight issues, mental status better, able to follow commands, answer questions, but speech is quite garbled hemodynamically stable, labs st able, no oxygen needs xfer to med surg status, was kimberly serogaby last night to see if it helps. will not be continued post discharge 01/26 Patient is in examined, overnight was confused, however has not worsened since yesterday. He was sitting in chair, had finished his supper at the time of my evaluation. Denies any acute complaints or concerns. Anticipate discharge tomorrow if remains stable to snf he will need to watch bed The patient speech is garbled but slowly improving, mental status was much better today compared to yesterday 01/27 Patient seen examined, very drowsy today, sleeping very deeply, only responds to deep stimulyus, or very loud voice Head CT done is negative Xray shows continued improvement in Pna ABG is neg for any acute co2 retention or acidosis The patient has not slept for a few days, and is likely catching up. will not discharge today and continue to observe Glucose level was 92 01/28 Pt seen examined, sitting in bed comfortable, speech much better, cooperative, still has some confusion, but significnatly improved from few days ago. Stable for discharge completed ABX course labs stable, d/c rosas In summary This is a 88-year-old gentleman, with history of Parkinson's disease admitted to the hospital with diagnosis of pneumonia, the patient was confused and delirious during the hospital stay. Microbiology was negative patient was treated with broad-spectrum antibiotics and Tamiflu. Patient complete the course of antibiotics and antiviral agents in the hospital. The patient's mental status improved gradually and at the time of discharge his speech is significantly better and he is cooperative. He will be discharged to a rehab center for continued rehab. Discharge diagnosis: Influenza A pneumonia, - Time Spent with Patient Total time spent providing and/or coordinating discharge services: Greater than 30 minutes Medical - DS: Exam - Constitutional Vitals: Vital Signs Temp Pulse Pulse Resp BP BP Pulse Ox 01/28/19 08:00 18 94 01/28/19 07:55 98.8 F 108 H 18 115/82 94 01/28/19 04:15 98.9 F 89 24 H 113/70 96 01/27/19 23:55 98.5 F 95 H 20 116/70 95 01/27/19 20:15 97.7 F 94 H 20 110/57 94 01/27/19 16:00 98.7 F 28 H 124/79 92 01/27/19 14:08 80 16 01/27/19 11:52 97.8 F 20 124/67 93 Intake and Output 01/27/19 01/28/19 01/28/19 21:59 05:59 13:59 Intake Total 120 240 100 Output Total 475 450 Balance -355 -210 100 Intake: IV 100 Oral 120 240 Output: Urine Catheter Amount 475 450 Other: Meal Applesauce Percent of Meal Consumed 100% Feeding Ability Total Assistance Urine Appearance Clear Clear Clear Uretheral ([place]) Clear Clear Urine Color Dark Yellow Light Jessica Light Jessica Uretheral ([place]) Light Jessica Light Jessica Urine Odor Normal Weight 203 lb 8 oz Additional comments: Constitutional; Afebrile, cooperative, alert, not in distress. Respiratory system: Air Entry equal on both sides, No crackles or wheezing, no rhonchi. CVS- Rate rhythm regular, S1,S2 heard, no gallop, no rub. Abdomen- Soft nontender abdomen, no organomegaly, no tenderness, no guarding or rigidity, MANAGER BEHAVIOR- AOOx2, moving all extremities, no gross focal deficit noted. Medical - DS: Data Labs on day of discharge: Labs from last 24 hours 01/28/19 01/28/19 04:10 04:10 WBC 6.6 RBC 4.01 L Hgb 13.0 L Hct 39.2 L MCV 97.5 MCH 32.3 MCHC 33.1 RDW 14.2 Plt Count 303 MPV 7.9 Gran % 72.7 Lymph % (Auto) 18.1 Casey % (Auto) 7.7 Eos % (Auto) 1.3 Baso % (Auto) 0.2 Gran # 4.8 Lymph # (Auto) 1.2 L Casey # (Auto) 0.5 Eos # (Auto) 0.1 Baso # (Auto) 0 Sodium 139 Potassium 4.2 Chloride 101 Carbon Dioxide 28 Anion Gap 10.0 BUN 10 Creatinine 0.6 L GFR Calculation 90 Glucose 106 H Uric Acid 2.7 Calcium 8.2 L Phosphorus 2.1 L Magnesium 1.8 Total Bilirubin 0.9 Direct Bilirubin 0.2 GGT 32 AST 18 ALT < 5 Alkaline Phosphatase 52 Lactate Dehydrogenase 201 Total Protein 6.5 Albumin 2.7 L Globulin 3.8 H Albumin/Globulin Ratio 0.7 L Triglycerides 74 Medical - DS: A/P - Patient/Caregiver Discharge Instructions Activity: as per physical therapy, increase activity as tolerated Diet: Consistent Carbohydrate Additional Instructions: Please follow up with PCP in 1 week Go to the ER if worsening symptoms, fever, chest pain shortness of breath or any other acute concern. Bladder scan if patient has not voided for 12 hrs. - Follow up Plan Follow up with: Twyla Fay MD [Primary Care Provider] - Disposition: [facility] SNF Prognosis: Fair Rehab Potential: Fair I certify that the patient requires SNF services: Yes Overall status at discharge: patient is progressing back to baseline Medical - DS: Qual - VTE Deep Vein Thrombosis/Pulmonary Embolism Present on Admission: No
== END 2019-01-28 11:16 | DRG 195 ==
LOC: ED 13:40 → ICU 16:46 → MEDSUR 01-25 17:10
PROVIDERS: ADMIT Internal Medicine; ATTEND Internal Medicine